=== PATIENT | female | born 1925 | race Caucasian/White ===

== ENCOUNTER 2016-08-23 18:59 | Inpatient (IN) | payer MEDICARE, OTHER ==
[~2016-08-23] VITALS: Ht 162.6 cm; Wt 62.7 kg
[~2016-08-23 18:59] MED LIST: ASPI81TA3 PO; COD1CAPS6 PO; CRES20T PO; LEVO25TA5 PO; LISI2.5T PO; MULT-1018 PO; PRE20 PO
[2016-08-23 19:09] VITALS: BP 121/60; PULSE 82; RESP 20; O2SAT 96
--- NOTE | 2016-08-23 19:22 | ED.REPORT ---
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 The patient was bit by her cat on Sunday (4 days ago). She was seen by her regular doctor on Sunday and was sent home on Augmentin 875 mg BID. Her symptoms have not improved and the redness has started to go up her arm. She denies fever, chills, diaphoresis, nausea or vomiting. Her last tetanus was in 2010. Nursing Notes Stated Complaint: CAT SCRATCH ON LEFT HAND AND ARM SENT FROM Chief Complaint: Extremity Trauma Nursing Notes Reviewed: Yes Allergies: Coded Allergies: niacin (Verified Allergy, Intermediate, tingle, 08/23/16) Scheduled Acetaminophen (Acetaminophen) 500 Mg Tablet 500 MG PO BID Albuterol Neb Soln (Albuterol Neb Soln) 2.5 Mg/3 Ml Vial.neb 2.5 MG INHALATION QAM Aspirin Chew (Aspirin Chew) 81 Mg Tab.chew 81 MG PO DAILY Garlic (Garlic) 200 Mg Tablet 400 MG PO QAM Levothyroxine (Levothyroxine) 25 Mcg Tablet Unknown Dose PO QAM Lisinopril (Lisinopril) 5 Mg Tablet 2.5 MG PO HS Multivitamin (Multi Vitamin Daily) 1 Each Tablet 1 EACH PO QAM Rosuvastatin Calcium (Rosuvastatin Calcium) 20 Mg Tablet 20 MG PO HS General Time Seen by MD: 19:22 Chief Complaint Hand Injury left Hx Obtained From: Patient Arrived By: Walk-in Onset Occurred: 4 days ago Symptom Duration: Since onset Caused by: Animal bite (cat scratch) Location: : Hand left Quality: Painful Severity: Current: Moderate Severity: Maximum: Moderate Recent Healthcare: No recent hospitalization, Recent doctor visit Similar Sx Previous: No Past Medical History Past Medical History Notes: Medications: Celebrex, Crestor, levothyroxine, vitamins, home O2 Past Medical History hypothyroid COPD-on chronic O2 History of possible remote C2 fracture Hyperlipidemia Osteoarthritis History of tubular adenomas on colonoscopy in 2009 Diverticulosis History of left bundle-branch block Past Surgical History T&A Partial thyroidectomy Bilateral tubal ligation Appendectomy Tonsillectomy Exploratory laparotomy a benign abdominal dinner incision Bilateral cataract surgeries Colonoscopy in 2004 and 2009 Family History Noncontributory Smoking History Former Smoker Social History Alcohol Use: 1-3 per week Other Social History: Good social support, Local resident Ambulatory Status Independent Review of Systems Constitutional: Denies: Chills, Fever Musculoskeletal: Reports: Extremity pain, Extremity swelling Skin: Reports Rash, Denies Diaphoresis Complete sys rev & neg: except as marked. GI: Denies: Nausea, Vomiting Physical Exam Initial Vital Signs Vital Signs (First) Date Time Temp Pulse Resp B/P Pulse Ox O2 Delivery O2 Flow Rate FiO2 08/23/16 19:09 36.9 82 20 121/60 96 Nasal Cannula 2 Initial VS: Reviewed Head / Eyes: Atraumatic, Normocephalic, PERRL ENT: Mucous membranes moist, Conjunctiva normal, No scleral icterus Neck: Supple, Non-tender, Full range of motion Respiratory: Breath sounds normal, Clear to auscultation, No respiratory distress Cardiovascular: Regular rate & rhythm, Heart sounds normal, Intact distal pulses Abdomen / GI: Soft, Non-tender, No guarding, No rebound, No distention Lymphatic: No lymphadenopathy Lower Extremities: Vascular intact, Neuro intact, No swelling, No tenderness Skin: Warm, Dry, No cyanosis Neurologic: Alert, Oriented, Nonfocal Psychiatric: Mood/affect normal, Behavior normal, Normal thought content General/Constitutional: Awake, Alert, Cooperative Wrist / Hand: Neurologic intact, Vascular intact LEFT HAND: She has dense erythema form the MCP joints up to the elbow, anteriorly and posteriorly. She has swelling with an area of about 2x2 cm at the dorsal wrist crease of fluctuance. Bedside US: At the level of the posterior wrist crease there is a few cc's of fluids around her extensor tendons. Interpretation & Diagnostics Lab Results Interpretation Result Diagram: 08/23/16199908/23/161999 Test 08/23/16 20:00 White Blood Count 9.6th/mm3 (3.8-10.1) Red Blood Count 3.97mil/mm3 (3.90-5.20) Hemoglobin 11.7g/dL (12.0-15.6) Hematocrit 36.6% (35.0-46.0) Mean Corpuscular Volume 92.2fL (81-100) Mean Corpuscular Hemoglobin 29.5pg (27.0-35.0) Mean Corpuscular Hemoglobin Concent 32.0% (32.0-37.0) Red Cell Distribution Width 13.3% (12.3-15.4) Platelet Count 294bil/L (150-400) Neutrophils (%) (Auto) 75.3% (40-74) Lymphocytes (%) (Auto) 10.4% (14-46) Monocytes (%) (Auto) 12.7% (4-12) Eosinophils (%) (Auto) 1.2% (0-5) Basophils (%) (Auto) 0.2% (0-3) Erythrocyte Sedimentation Rate 44mm/hr (0-40) Sodium Level 135mEq/L (134-144) Potassium Level 4.1mEq/L (3.5-5.2) Chloride Level 97mEq/L (97-108) Carbon Dioxide Level 27mmol/L (18-29) Blood Urea Nitrogen 12mg/dL (8-27) Creatinine 0.75mg/dL (0.57-1.00) Estimat Glomerular Filtration Rate 104mL/min (>59) Glucose Level 96mg/dL (60-99) Lactic Acid Level 1.0mmol/L (0.4-2.0) Calcium Level 9.6mg/dL (8.5-10.1) Total Bilirubin 0.6mg/dL (0.0-1.2) Aspartate Amino Transf (AST/SGOT) 24U/L (0-50) Alanine Aminotransferase (ALT/SGPT) 14U/L (0-32) Alkaline Phosphatase 69U/L (25-165) Total Protein 7.2g/dL (6.4-8.4) Albumin 4.0g/dL (3.4-5.0) Re-Eval/Medical Decision Med Decision/Clinical Course While the patient was in the emergency department I performed a bedside unofficial ultrasound and found a significant fluid collection at the dorsal wrist crease with 4 extensor tendons within the fluid sac. After had examined the patient he was concerned also that this might represent an abscess within the tendon sheath and he therefore recommended MRI scanning. Between 2100 and 2300 hrs. we attempted to obtain MR images of her hand but the patient ultimately was not able to cooperate sufficiently to allow these images to be obtained. I then again spoke with and he said that he would appreciate my attempts to do a blind I&D of the area. I then went to the floor at approximately 2315 and reevaluated the patient. I repeated an ultrasound and found that the fluid collection that had been prominent just a few hours previously had all but resolved. There was only a very scant amount of fluid visible around the tendons certainly less than one quarter of a centimeter. I did not therefore feel it appropriate for me to open up that tendon sheath at the bedside. The redness had dramatically improved as well. I think it is safe to withhold a procedure at this point until reevaluation by takes place in the morning. Source of Hx: Old records, Friend Re-Evaluation/Progress #1: Time of Eval: 19:33 Re-Evaluation/Progress Note: Discussed plan for admission. All questions were addressed. Re-Evaluation/Progress #2: Time of Eval: 19:42 Re-Evaluation/Progress Note: Dr. Vanegas is here examining the patient. Consultation #1: Referral / Consult Name: Shiva Vanegas MD Consulted With: Orthopedic Call Returned at: 19:38 Disk Grinder: Will see patient, Agrees with eval, Agrees with plan Note: He will come see the patient right now. After examining the patient he would like an MRI with contrast ordered. Consultation #2: Referral / Consult Name: Stefan Hernandez MD Consulted With: Hospitalist Requested Call at: 19:39 Call Returned at: 19:42 Disk Grinder: Will see patient, Agrees with eval, Agrees with plan, Accepts admit Counseled Regarding: Diagnosis, Lab results, Need for admission Discharge & Departure Impression: Primary Impression: Tenosynovitis of hand Additional Impressions: Cat bite of hand Encounter type: initial encounter Laterality: left Qualified Code: S61.452A - Open bite of left hand, initial encounter Failure of outpatient treatment Disposition: ADMITTED TO HOSPITAL Discharge Condition All VS Reviewed: Yes Condition: Stable Referrals: Nathen Harrison MD (PCP) [facility] (Family) Scribe Attestation Portions of this note were transcribed by Gabrielle Harper. I, Dr. Brown personally performed the history, physical exam and medical decision-making; I reviewed and confirmed the accuracy of the information in the transcribed note. Signed by: Agustín Jaramillo, 08/23/2016 at 2000. copies to: Nathen Harrison MD, Kirk H MD August 23, 2016 19:22 Leroy,Gabrielle Kraft August 23, 2016 19:31
[2016-08-23] MEDS ORDERED: Clindamycin Inj 900 MG in IV Premix 1 EACH IV ONE (19:40)
[2016-08-23] MEDS ORDERED: metroNIDAZOLE Inj 500 MG in IV Premix 1 EACH IV ONE (19:40)
[2016-08-23] MEDS ORDERED: Meropenem Inj 1,000 MG in 0.9% Sodium Chloride 100 ML IV ONE (19:40)
[2016-08-23] MEDS ORDERED: MULT-140 PO (19:47)
[2016-08-23] MEDS ORDERED: ACET-171 PO (19:47)
[2016-08-23] MEDS ORDERED: ALBU2.5V4 INHALATION (19:47)
[2016-08-23] MEDS ORDERED: GARL200T PO (19:47)
[2016-08-23] MEDS ORDERED: Alum-Mag Hydrox-Simeth 30 mL Suspension PO PRN (20:10)
[2016-08-23] MEDS ORDERED: Ondansetron 2 mg/mL 2 mL Inj IVPUSH PRN (20:10)
[2016-08-23] MEDS ORDERED: Polyethylene Glycol (PEG) 17 Gm Powder PO PRN (20:10)
[2016-08-23 20:14] LABS: BASOPHILS % (AUTO) 0.2 % (0-3); EOSINOPHILS % (AUTO) 1.2 % (0-5); MONOCYTES % (AUTO) 12.7 % (4-12); Mean Corpuscular Hemoglobin 29.5 pg (27.0-35.0); Mean Corpuscular Volume 92.2 fL (81-100); NEUTROPHILS % (AUTO) 75.3 % (40-74); Platelet Count 294 bil/L (150-400)
--- NOTE | 2016-08-23 20:17 | PCM.CONORT ---
Subjective Date of Surgery: August 23, 2016 Surgeon Admitting Provider:Stefan Hernandez MD Attending Provider:Stefan Hernandez MD Primary Care Physician:Nathen Rodriguez MD Other Provider: Reason for Consultation: left wrist pain, redness and swelling after cat bite Allergy Allergies: Coded Allergies: niacin (Verified Allergy, Intermediate, tingle, 08/23/16) Medications Acetaminophen (Acetaminophen) 500 Mg Tablet 500 MG PO HS (Reported) Albuterol Neb Soln (Albuterol Neb Soln) 2.5 Mg/3 Ml Vial.neb 2.5 MG INHALATION BID (Reported) Aspirin Chew (Aspirin Chew) 81 Mg Tab.chew 81 MG PO DAILY Prescribed by: NATEHN RODRIGUEZ MD Cod Liver Oil (Cod Liver Oil) 1 Each Capsule 1 EACH PO AM (Reported) Garlic (Garlic) 200 Mg Tablet 400 MG PO DAILY (Reported) Levothyroxine (Levothyroxine) 25 Mcg Tablet 25 MCG PO Every other day (Reported ) Take 25 mcg alternate with 12.5 mcg every other day. Lisinopril (Lisinopril) 2.5 Mg Tablet 2.5 MG PO DAILY Prescribed by: NATHEN RODRIGUEZ MD Multivitamin (Multi Vitamin Daily) 1 Each Tablet 1 EACH PO DAILY (Reported) Rosuvastatin Calcium (Crestor) 20 Mg Tablet 20 MG PO DAILY Prescribed by: NATHEN RODRIGUEZ MD Discontinued Medications Multivit with Calcium,Iron,Min (Therapeutic M) 1 Each Tablet 1 EACH PO DAILY ( Reported) Prednisone (PredniSONE) 20 Mg Tablet 20 MG PO DAILY Prescribed by: NATHEN RODRIGUEZ MD History History of ENT Problems?: Yes HEENT History: Positive for:: Cataracts (previous cataract surgery on both eyes) Denies:: Dysphagia Glaucoma Sinus Problem Denture Type: None Teeth Condition: Within Normal Limits Hx of Heart Problems?: No Cardiovascular History: Positive for:: Irregular Heartbeat (hx of left BBB) Denies:: Cardiac Surgery Chest Pain Congestive Heart Failure Edema Heart Murmur Hypertension Pacemaker Thrombophlebitis Other Cardiac History: HLD Hx of Respiratory Problem?: Yes Respiratory History: Positive for:: COPD (on chronic O2) Dyspnea Denies:: Asthma Chest Surgery Emphysema Hemoptysis Pneumonia Tuberculosis Hx Neurologic Problems?: Yes Neurological History: Positive for:: Dizziness Denies:: Alzheimer's Disease CVA Dementia Headaches Parkinson's Disease Seizures Hx of GI Problems?: Yes Hx of Problems?: No Genitourinary History: Denies:: HX of Hemodialysis Kidney Stones Urinary Tract Infection HX of Peritoneal Dialysis: No Female Hx: Denies:: Currently (s/p tubal ligation) Endometriosis Pelvic Inflammatory Problems with Breasts? Other Skin Pertinent History: current: left arm cat scratch-arm redness Hx Musculoskeletal Problems?: Yes Musculoskeletal History: Denies:: Back Injury Joint Replacement Musculoskeletal Trauma (hx of remote C2 fracture, "possible") Other History/Comment Cindy Guaman is an 89-year-old right hand dominant patient who presents to the ER and a consultation was requested for orthopedic evaluation of their left wrist/hand with ongoing symptoms. The patient states that their pain is achy in nature and mild/moderate in severity localized to the dorsal aspect of the hand and wrist without radiation. This has been progressing over the past few days after she was bit by her cat last Sunday. She went to her PCP on Sunday and was prescribed antibiotics which she has been taking. Moreover, the pain is exacerbated by activities, especially with extended use. Rest seems to improve the symptoms. Previous treatment has included antibiotics given from Sunday. There is no reports numbness, tingling, or weakness to the affected distal upper extremity. The patient denies any fever, chills, nausea, vomiting, chest pain, shortness of breath, or calf tenderness. Work/hobbies/sports include:she reports history of COPD and previous cigarette smoker. She reports swelling and redness that is spreading to her forearm. Hx of Psycho/Social Problems?: No Psycho Social History: Denies:: Anxiety Bipolar Disorder Hx Depression Suicide Attempt Hx Surgeries?: Yes (T&A, part.thyroidectomy, tubal lig, appy, tonsillectomy, cataracts) Hx Any Other Health Problems?: Yes Other History: Positive for:: Hospitalization Thyroid Disease (1988 Thyroid removed) Denies:: Cancer History Blood Transfusions: Positive for:: Accept Blood Products? Denies:: Blood Transfusions (unknown) Hx Diabetes: No Hx Alcohol Use: Yes (glass of wine monthly)Hx Substance Use: No Smoking Status: Former Smoker Have You Smoked inLast 12 mo: No (quit over a year ago) Objective Exam Vital Signs & I/O Vital Sign- Last 8 Hours Date Time Temp Pulse Resp B/P Pulse Ox O2 Delivery O2 Flow Rate FiO2 08/23/16 19:09 36.9 82 20 121/60 96 Nasal Cannula 2 Review of Systems: Constitutional: Negative, except as otherwise mentioned in the history above. Ophthalmologic: Negative, except as otherwise mentioned in the history above. Cardiovascular: Negative, except as otherwise mentioned in the history above. Respiratory: Negative, except as otherwise mentioned in the history above. Gastrointestinal: Negative, except as otherwise mentioned in the history above. Genitourinary: Negative, except as otherwise mentioned in the history above. Musculoskeletal: Negative, except as otherwise mentioned in the history above. Neurological: Negative, except as otherwise mentioned in the history above. Psychiatric: Negative, except as otherwise mentioned in the history above. Hematologic/Lymphatic: Negative, except as otherwise mentioned in the history above. Allergic/Immunologic: Negative, except as otherwise mentioned in the history above. H&P Surgical Exam Exam Musculoskeletal: CONST: WD,WN, NAD, A+OX3 OCULAR: EOMI, no conjunctivitis/icterus ENT: no deformities, scars or lesions CARDIAC: Pulse is regular. No cyanosis,clubbing,edema RESP: regular,unlabored MSK: normal light touch median, ulnar, radial, lateral antebrachial, axillary nerve distribution. Intact AIN, PIN, u, r, ax motor. C5-T1 intact, 2+ r/u pulse Left wrist/hand - scars, + redness up forearm dorsally, discoloration/warm temp , + swelling with 2cm diameter fluid pocket dorsum of wrist, - atrophy or asymmetry, - cascade sign, no global ligamentous laxity, TTP mild over wrist ROM left Ext-flex Resisted Strength/Pain 0-85 MCP 5/5 / - 0-110 PIP 5/5 / - 0-65 DIP 5/5 / - 60 -60 Wrist 5/5 /+ 50 deg of radioulnar arc mild painful arc, - crepitus Signs deferred H&P Preop Plan Impression left wrist abscess secondary to cat bite Problems: Risks & Benefits * We have reviewed the risks and benefits as well as the alternatives to surgery. All questions were answered to the patient's satisfaction and a counseling note to that effect. The patient has provided informed consent. * I have counseled the patient regarding the deleterious effects that smoking during the perioperative period can have upon wound healing, infection rates, and the overall rate of complications. Plan xray of wrist MRI with contrast to evaluate extent of infection recommend bedside I+D continue abx will continue to follow may need further I+D in OR if no improvement/worsening NPO after midnight consent obtained pain control continue medical management per primary please call with questions Shiva Vanegas MD August 23, 2016 20:17
[2016-08-23] MEDS ORDERED: LISI-571 PO (20:26)
[2016-08-23] MEDS ORDERED: ROSU20TA27 PO (20:27)
[2016-08-23] MEDS ORDERED: LEVO25TA5 PO (20:43)
--- NOTE | 2016-08-23 21:00 | NUR ---
Admit report received from Tawny ZUÑIGA RN arrived via [employer] via sheet d/t extreme RLE extremety from prev fall , admit dx tenosynovitis L hand text page for diet and pain med possible surgery chelsea per report
--- NOTE | 2016-08-23 21:30 | NUR ---
MRI Off floor to MRI of wrist transport via bed pre-mediated w/oxycodone prior
[2016-08-23 21:33] VITALS: BP 151/69; PULSE 85; RESP 18
[2016-08-23] MEDS ORDERED: Vancomycin Dose per Pharmacist XX SCH (21:40)
--- NOTE | 2016-08-23 21:49 | PCM.HPMED ---
Subjective Date of Service August 23, 2016 Primary Provider: Admitting Physician: Stefan Hernandez MD Primary Care Physician: Nathen Harrison MD Attending Physician: Stefan Hernandez MD Chief Complaint: Left hand cat bite History of Present Illness: Mrs. Cindy Stallings is a very pleasant 89-year-old lady here today with worsening pain and erythema of the left hand following a cat bite on Sunday. She visited her doctor on the following Sunday and was started on appropriate antibiotic therapy of Augmentin 875 mg twice a day. Since Sunday her pain, redness, swelling and decreased range of motion have worsened, even with the addition of antibiotics. The redness has extended from her hand to her elbow starting today noted by patient's roommate. Patient's pain is rated anywhere from 5 to a 10 out of 10 sharp and along the dorsal aspect of the radial carpal joint. There is a 3 x 3 fluctuant erythematous mass on the dorsal aspect of the radial carpal joint on the left hand. She denies syncope, dizziness, headache, chest pain, nausea, vomiting, diaphoresis, fever, chills, abdominal pain, dysuria, constipation. She reports chronic shortness of breath and new onset of normal color diarrhea today, which she states is very abnormal. She has a past medical history significant for COPD on home O2 of 2 L with a long history of tobacco use 75 years 1.5 packs per day but is currently a nonsmoker, left bundle branch block, hyperlipidemia, osteoarthritis. Medication list at this point is incomplete work on med reconciliation. In the emergency department on admission temperature of 36.9, pulse 82, respiratory rate 20, blood pressure 121/60, pulse ox 96 on 2 L nasal cannula. Laboratories unremarkable with normal white count hemoglobin 11.7, neuts 75.3, lymphs 10.4, monocytes 12.7, completely benign CMP, lactic acid of 1.0 In the emergency department patient received IV antibiotics including clindamycin, metronidazole, meropenem. Review of Systems: A comprehensive review of systems was conducted with the patient and found to be negative except as above in the History of Present Illness. Allergies Coded Allergies: niacin (Verified Allergy, Intermediate, tingle, 08/23/16) Home Medications Med list is incomplete as there is some disagreement at this time will continue to work on med reconciliation. PMH hypothyroid COPD-on chronic O2 History of possible remote C2 fracture Hyperlipidemia Osteoarthritis History of tubular adenomas on colonoscopy in 2010 Diverticulosis History of left bundle-branch block Surgical History T&A Partial thyroidectomy Bilateral tubal ligation Appendectomy Tonsillectomy Exploratory laparotomy a benign abdominal dinner incision Bilateral cataract surgeries Colonoscopy in 2004 and 2009 Family History Maternal GM diabetes Paternal GF Tuberculosis, alcoholism Social History Hx Alcohol Use: Yes (glass of wine per day) Hx Substance Use: No Hx Tobacco Use: No Smoking Status: Former Smoker (75 years of 1.5 ppd) Living Arrangement: Assisted Living ([facility]) Exam Vital Signs Vital Sign - Last Date Time Temp Pulse Resp B/P Pulse Ox O2 Delivery O2 Flow Rate FiO2 08/23/16 19:09 36.9 82 20 121/60 96 Nasal Cannula 2 Exam General: Pleasant elderly lady lying in bed in No acute distress, well-developed , well-nourished, appropriately interactive HEENT: Normocephalic, atraumatic. External ears without defect. Pupils equal, round, and reactive to light and accommodation. Anicteric sclerae, moist conjunctivae, and no lid lag. Oropharynx free of erythema and cobble stoning with moist mucosa. Neck: Supple with full range of motion. No jugular venous distension. No bruits. No lymphadenopathy or thyromegaly. Cardiovascular: Regular rate and rhythm with no murmurs, rubs, or gallops appreciated Pulmonary: Clear to auscultation bilaterally with no crackles, wheezes, or rhonchi. Normal respiratory effort with no use of accessory muscles. Abdomen: Bowel tones present. Soft, nontender, nondistended. No hepatosplenomegaly or masses appreciated. Extremities: No clubbing, cyanosis, edema, or lymphadenopathy appreciated. Skin: Normal temperature, turgor, and texture; no rash, ulcers, or subcutaneous nodules appreciated. Fluctuant,erythematous mass on the dorsal aspect of the left radial/carpal joint, roughly 3x3cm. Erythema extending from dorsal aspect of left hand to medial / posterior aspect of left elbow. Tender to palpation on dorsal aspect of left hand. Marked decrease ROM in flexion / extension. Four areas of apparent superficial scratch borrego on various areas surrounding the left erythematous mass present, without noticeable puncture wounds in or around the fluctuant mass on the dorsal aspect of the left radial carpal joint. Neurological: Cranial nerves grossly intact. Normal muscle strength, tone, and bulk. Reflexes, coordination, and sensory function within normal limits. Requires aid and walker due to right hip injury. Psychiatric: Normal mood and affect. Alert and oriented to person, place, and time. Lab and Diagnostics Result Diagram: 08/23/16199908/23/161999 Assessment & Plan Ms. Cindy Stallings is a very pleasant 89-year-old lady here today with worsening pain and erythema of the left hand following a cat bite on Sunday. She visited her doctor on the following Sunday and was started on appropriate antibiotic therapy of Augmentin 875 mg twice a day. Since Sunday her pain, redness, swelling and decreased range of motion have worsened, even with the addition of antibiotics. The redness has extended from her hand to her elbow starting today noted by patient's roommate. Patient's pain is rated anywhere from 5 to a 10 out of 10 sharp and along the dorsal aspect of the radial carpal joint. There is a 3 x 3 fluctuant erythematous mass on the dorsal aspect of the radial carpal joint on the left hand. She denies syncope, dizziness, headache, chest pain, nausea, vomiting, diaphoresis, fever, chills, abdominal pain, dysuria, constipation. She reports chronic shortness of breath and new onset of normal color diarrhea today, which she states is very abnormal. She has a past medical history significant for COPD on home O2 of 2 L with a long history of tobacco use 75 years 1.5 packs per day but is currently a nonsmoker, left bundle branch block, hyperlipidemia, osteoarthritis. Medication list at this point is incomplete work on med reconciliation. 1. Tenosynovitis of the left hand, present on admission. Active. - Second 2 traumatic Bite on 08/19/2016 - As an outpatient received 3 days of Augmentin 875 mg twice a day without improvement of symptoms. - In the emergency department patient received IV metronidazole, clindamycin, meropenem. - Cat bite increased risk for Pasteurella multocida- avoid Clinda cephalexin and dicloxacillin due to resistance. - White count 9.6, differential neutrophils 75.3, lymphs 10.4, Benzie 1.7, lactic acid 1.0. - Tetanus received in 2010. - Blood culture pending. - ESR pending. - Nasal MRSA swab ordered. - Orthopedic surgeon consulted, Dr. Vanegas has seen patient, recommendations greatly appreciated. - Plan was to I&D with culture in the emergency department after MRI. - Patient was not able to complete the MRI due to anxiety, wrist pain and right hip pain, even after several rounds of Ativan and Dilaudid. However, once patient made it to floor, her wrist erythema and fluctuant mass had greatly improved. Therefore an I&D was not preformed. - We will begin vancomycin MRSA coverage and broad-spectrum Zosyn. Will possibly require longer term outpatient antibiotics. If worsens may consider ID consult. - Nothing by mouth after midnight will be evaluated again tomorrow by orthopedic surgery. 2. COPD, present on admission. Stable. - Continue 2 L O2 by nasal cannula. - Patient states that she takes a daily nebulizer unknown at this point. 3. Hyperlipidemia, present admission. Stable. - Continue home medications. (Rosuvastatin) 4. Hypertension, present on admission. Stable. - Continue home medications.(Lisinopril 2.5) 5. History of partial thyroidectomy, - On the patient's Vanessa and med list she is prescribed Synthroid however patient says she does not need thyroid replacement therapy day team to reconcile this medication. 6. Acute diarrhea, present on admission. Active. - C. difficile stool toxin pending. 7. 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 Social: Patient's ambulatory status is questionable as of a mentioned a right hip injury 2 years ago with ineffective physical therapy and no relief of pain. She continues to have a functional disability where she requires aid and walker for ambulation. Subjectively she mentioned a current evaluation for possible hip surgery, unspecified and unconfirmed. Acetaminophen for mild pain when necessary. Bowel regimen Senna and MiraLAX scheduled and PRN. Zofran when necessary for nausea and vomiting. SubQ heparin held for now. SCDs in place. Disposition: Patient has been admitted for IV antibiotics, I&D and possible surgical intervention. Discharge is dependent upon infectious response to medical and surgical intervention. Will be discharged to [facility] when medically stable. Pain Evaluation: Adequate Pain Control Resuscitation Status: DNR/DNI:Do Not Resuscitate/Intubate Attending Statement The patient was seen and examined together with Dr. Das on 08/23 and I agree with the history, exam and plan as outlined in the note above. YANNICK DAS DO August 23, 2016 20:53 Stefan Hernandez MD August 23, 2016 21:56
[2016-08-23] MEDS ORDERED: HYDROmorphone 1 mg/mL Inj IVPUSH ONE (21:50)
[2016-08-23] MEDS ORDERED: Vancomycin Inj 1,250 MG in 0.9% Sodium Chloride 250 ML IV ONE (22:00)
[2016-08-23 22:09] LABS: APPEARANCE,URINE CLEAR (CLEAR,HAZY); COLOR,URINE YELLOW (YELLOW); OCCULT BLOOD,URINE SMALL (NEGATIVE); UROBILINOGEN,URINE NORMAL (NORMAL)
[2016-08-23] MEDS ORDERED: HYDROmorphone 0.5 mg/0.5 mL iSecure Syringe IVPUSH ONE (22:35)
--- NOTE | 2016-08-23 23:04 | PCM.CONPHA ---
Subjective Date of Service: August 23, 2016 Left hand cat bite Reason for Pharmacy Consult: Vancomycin Dosing Objective Vital Signs Date Time Temp Pulse Resp B/P Pulse Ox O2 Delivery O2 Flow Rate FiO2 08/23/16 21:33 37.4 85 18 151/69 Nasal Cannula 2.50 08/23/16 19:09 36.9 82 20 121/60 96 Nasal Cannula 2 Weight (Kilograms): 62.73 Height (Feet): 5 Height (Inches): 4 Test 08/23/16 20:00 08/23/16 21:44 White Blood Count 9.6th/mm3 (3.8-10.1) Red Blood Count 3.97mil/mm3 (3.90-5.20) Hemoglobin 11.7g/dL (12.0-15.6) Hematocrit 36.6% (35.0-46.0) Mean Corpuscular Volume 92.2fL (81-100) Mean Corpuscular Hemoglobin 29.5pg (27.0-35.0) Mean Corpuscular Hemoglobin Concent 32.0% (32.0-37.0) Red Cell Distribution Width 13.3% (12.3-15.4) Platelet Count 294bil/L (150-400) Neutrophils (%) (Auto) 75.3% (40-74) Lymphocytes (%) (Auto) 10.4% (14-46) Monocytes (%) (Auto) 12.7% (4-12) Eosinophils (%) (Auto) 1.2% (0-5) Basophils (%) (Auto) 0.2% (0-3) Erythrocyte Sedimentation Rate 44mm/hr (0-40) Sodium Level 135mEq/L (134-144) Potassium Level 4.1mEq/L (3.5-5.2) Chloride Level 97mEq/L (97-108) Carbon Dioxide Level 27mmol/L (18-29) Blood Urea Nitrogen 12mg/dL (8-27) Creatinine 0.75mg/dL (0.57-1.00) Estimat Glomerular Filtration Rate 104mL/min (>59) Glucose Level 96mg/dL (60-99) Lactic Acid Level 1.0mmol/L (0.4-2.0) Calcium Level 9.6mg/dL (8.5-10.1) Total Bilirubin 0.6mg/dL (0.0-1.2) Aspartate Amino Transf (AST/SGOT) 24U/L (0-50) Alanine Aminotransferase (ALT/SGPT) 14U/L (0-32) Alkaline Phosphatase 69U/L (25-165) Total Protein 7.2g/dL (6.4-8.4) Albumin 4.0g/dL (3.4-5.0) Urine Color Yellow (YELLOW) Urine Appearance Clear (CLEAR,HAZY) Urine pH 6.0 (5.0-8.0) Urine Specific [place] 1.007 (1.003-1.035) Urine Protein Negativemg/dL (NEG,TRACE) Urine Glucose (UA) Negativemg/dL (NEGATIVE) Urine Ketones Negativemg/dL (NEGATIVE) Urine Occult Blood Small (NEGATIVE) Urine Nitrite Negative (NEGATIVE) Urine Bilirubin Negative (NEGATIVE) Urine Urobilinogen Normalmg/dL (NORMAL) Urine Leukocyte Esterase Small (NEGATIVE) Urine RBC 0-2/hpf (0-2) Urine WBC 0-5/hpf (0-5) Urine Epithelial Cells Occasional/hpf (NONE-MOD) Urine Crystals None seen (NONE SEEN) Urine Bacteria None/hpf (NONE-FEW) Urine Hyaline Casts None/lpf (NONE) Urine Granular Casts None seen (NONE SEEN) Urine Waxy Casts None seen (NONE SEEN) Urine Red Blood Cell Casts None seen (NONE SEEN) Urine White Blood Cell Casts None seen (NONE SEEN) Urine Mucus None seen (None Seen) Urine Trichomonas None seen (NONE SEEN) Urine Yeast None (NONE SEEN) Urine Culture Reflexed Indicated Assessment/Plan Assessment/Plan VANCOMYCIN MANAGEMENT A\ 89yo F with Tenosynovitis of left hand 2nd to cat bite. Vancomycin goal trough of 10-15 Scr =0.75 GFR=44 WBC=9.6, afebrile Received Meropenem 1 gram x 1 in ER Current antibiotics Zosyn 3.375gram iv q8h dosed renally will adjust if necessary. Pending blood cultures P\ Will give loading dose of Vancomycin 1250mg IV x1 then 750mg IV q24h starting 08/24 with vancomycin trough before the 3rd dose. Erik Wright [facility] August 23, 2016 23:04
[2016-08-24] VITALS (9 sets, daily range): BP systolic 136–163; BP diastolic 52–72; PULSE 80–90; RESP 15–18; O2SAT 95–100
[2016-08-24] MEDS: Piperacillin-Tazo 3.375 Gm Inj 3.375 GM in Dextrose 5% Minibag Plus 50 ML IV SCH ×3 (02:25→13:00)
[2016-08-24 05:45] LABS: BASOPHILS % (AUTO) 0.2 % (0-3); EOSINOPHILS % (AUTO) 2.4 % (0-5); MONOCYTES % (AUTO) 12.3 % (4-12); Mean Corpuscular Hemoglobin 29.5 pg (27.0-35.0); Mean Corpuscular Volume 92.5 fL (81-100); NEUTROPHILS % (AUTO) 71.8 % (40-74); Platelet Count 293 bil/L (150-400)
[2016-08-24] MEDS ORDERED: Propofol 10,000 mCg/mL 20 mL Inj ONE (09:01)
[2016-08-24] MEDS ORDERED: Ondansetron 2 mg/mL 2 mL Inj ONE (09:01)
[2016-08-24] MEDS ORDERED: fentaNYL-PF 50 mCg/mL 2 mL Inj ONE (09:22)
--- NOTE | 2016-08-24 09:39 | NUR ---
NPO Keep her NPO per surgeon PA and states," Dr Vanegas will be in to see patient this afternoon for possible I&D. Daughter at bed side and aware.
--- NOTE | 2016-08-24 10:14 | PCM.PNMED ---
Subjective Date of Service August 24, 2016 Subjective pt stated that she felt much better less pain on Lt hand kept in NPO, plan for I&D per Ortho today Exam Vital Signs Vital Sign - Last Date Time Temp Pulse Resp B/P Pulse Ox O2 Delivery O2 Flow Rate FiO2 08/24/16 09:03 Supplement Oxygen 08/24/16 07:37 36.9 83 16 138/59 96 08/24/16 06:00 2.00 Intake and Output 08/23/16 08/23/16 08/24/16 Cumulative From/Thru 15:00 23:00 07:00 08/23/16 19:09 - 08/24/16 06:11 Intake Total 695 ml 695 ml Output Total 500 ml 500 ml Balance 195 ml 195 ml Intake Oral 240 ml 240 ml IV Total 455 ml 455 ml Output Urine Total 500 ml 500 ml Exam elederly, female, pleasant NAD, comfortably laying down on the bed no JVD, MMM, no LAD RRR, nl s1, s2 no mrg CTAB, no w,c S,ND,NT,normoactive BS+ warm, no edema, pulses 2/2 Lt hand: LROM of wrist joint due to pain, mildly edematous, mild erythema, warm up to forearm, no obvious ulcer on dorsum Lab and Diagnostics Result Diagram: 08/24/1651708/24/16517 Assessment & Plan Ms. Cindy Stallings is a very pleasant 89-year-old lady here today with worsening pain and erythema of the left hand following a cat bite on Sunday. She visited her doctor on the following Sunday and was started on appropriate antibiotic therapy of Augmentin 875 mg twice a day. Since Sunday her pain, redness, swelling and decreased range of motion have worsened, even with the addition of antibiotics. The redness has extended from her hand to her elbow starting today noted by patient's roommate. Patient's pain is rated anywhere from 5 to a 10 out of 10 sharp and along the dorsal aspect of the radial carpal joint. There is a 3 x 3 fluctuant erythematous mass on the dorsal aspect of the radial carpal joint on the left hand. She denies syncope, dizziness, headache, chest pain, nausea, vomiting, diaphoresis, fever, chills, abdominal pain, dysuria, constipation. She reports chronic shortness of breath and new onset of normal color diarrhea today, which she states is very abnormal. She has a past medical history significant for COPD on home O2 of 2 L with a long history of tobacco use 75 years 1.5 packs per day but is currently a nonsmoker, left bundle branch block, hyperlipidemia, osteoarthritis. Medication list at this point is incomplete work on med reconciliation. acute, active 1. Tenosynovitis of the left hand, present on admission. Active, Second 2 traumatic Bite on 08/19/2016, As an outpatient received 3 days of Augmentin 875 mg twice a day without improvement of symptoms. Tetanus received in 2010.no risks of Rabies. -clinically improving with current tx, -appreciate Orthopedic I&D today, culture - In the emergency department patient received IV metronidazole, clindamycin, meropenem, switched to vanc, zosyn. -awaits Blood culture. Nasal MRSA swab -appreciate ID input chronic, stable 2. COPD, present on admission. Stable. - Continue 2 L O2 by nasal cannula. - Patient states that she takes a daily nebulizer unknown at this point. 3. Hyperlipidemia, present admission. Stable. - Continue home medications. (Rosuvastatin) 4. Hypertension, present on admission. Stable. - Continue home medications.(Lisinopril 2.5) 5. History of partial thyroidectomy, - On the patient's Vanessa and med list she is prescribed Synthroid however patient says she does not need thyroid replacement therapy day team to reconcile this medication. 6. Acute diarrhea, present on admission. Active. - C. difficile stool toxin pending. 7. 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 Social: Patient's ambulatory status is questionable as of a mentioned a right hip injury 2 years ago with ineffective physical therapy and no relief of pain. She continues to have a functional disability where she requires aid and walker for ambulation. Subjectively she mentioned a current evaluation for possible hip surgery, unspecified and unconfirmed. Acetaminophen for mild pain when necessary. Bowel regimen Senna and MiraLAX scheduled and PRN. Zofran when necessary for nausea and vomiting. SubQ heparin held for now. SCDs in place. Disposition: within 1-2more days, home Resuscitation Status: DNR/DNI:Do Not Resuscitate/Intubate Time spent 35min Juan Antonio De La Garza MD August 24, 2016 09:28
--- NOTE | 2016-08-24 10:30 | PCM.PNORTH ---
Subjective Date of Service: August 24, 2016 Visit Information: Reason for Visit Tenosynovitis Left Hand Surgery/Surgery Date Post-Op Day # Date of Admission: August 23, 2016 at 20:04 Hospital Day # Subjective Patient is 1 day from admission for tenosinovitis of left hand. Patient's states that her hand feels 100% better than yesterday. Her pain is significantly reduced and she is not so worried about it anymore. She does state she does have tenderness on the backside of her hand when trying to bend her fingers or extend the wrist or when this is pushed on. She understands that she may need to have this drained still and would be willing to do so. Objective Exam Objective Patient is lying in bed and resting comfortably, not in acute distress. She appears to be alert and oriented 3. Left hand feels significantly warm compared to the right. She has a small area approximately 2 cm x 2 cm round along the dorsal aspect of the carpal region of the left wrist which does not fill firm, feels mostly like fluid but is tender to the touch. No purulence. No generalized reading of erythema though the left hand is slightly more erythematous than the left but no distinct cellulitic line. Range of motion of the left hand is restricted in flexion at the MCP joints to only 30, patient able to slightly extend and flex the wrist to proximally 20, limited due to pain but she states this is much better than yesterday. IV antibiotics have been running for approximately 3 hours now. Vital Signs and I/O Vital Sign - Last Date Time Temp Pulse Resp B/P Pulse Ox O2 Delivery O2 Flow Rate FiO2 08/24/16 09:03 Supplement Oxygen 08/24/16 07:37 36.9 83 16 138/59 96 08/24/16 06:00 2.00 Intake and Output 08/23/16 08/23/16 08/24/16 Cumulative From/Thru 15:00 23:00 07:00 08/23/16 19:09 - 08/24/16 06:11 Intake Total 695 ml 695 ml Output Total 500 ml 500 ml Balance 195 ml 195 ml Intake Oral 240 ml 240 ml IV Total 455 ml 455 ml Output Urine Total 500 ml 500 ml Lab & Micro Results Laboratory Tests Test 08/23/16 20:00 08/23/16 21:44 08/24/16 05:18 White Blood Count 9.6th/mm3 (3.8-10.1) 6.2th/mm3 (3.8-10.1) Red Blood Count 3.97mil/mm3 (3.90-5.20) 3.86mil/mm3 (3.90-5.20) Hemoglobin 11.7g/dL (12.0-15.6) 11.4g/dL (12.0-15.6) Hematocrit 36.6% (35.0-46.0) 35.7% (35.0-46.0) Mean Corpuscular Volume 92.2fL (81-100) 92.5fL (81-100) Mean Corpuscular Hemoglobin 29.5pg (27.0-35.0) 29.5pg (27.0-35.0) Mean Corpuscular Hemoglobin Concent 32.0% (32.0-37.0) 31.9% (32.0-37.0) Red Cell Distribution Width 13.3% (12.3-15.4) 13.2% (12.3-15.4) Platelet Count 294bil/L (150-400) 293bil/L (150-400) Neutrophils (%) (Auto) 75.3% (40-74) 71.8% (40-74) Lymphocytes (%) (Auto) 10.4% (14-46) 13.1% (14-46) Monocytes (%) (Auto) 12.7% (4-12) 12.3% (4-12) Eosinophils (%) (Auto) 1.2% (0-5) 2.4% (0-5) Basophils (%) (Auto) 0.2% (0-3) 0.2% (0-3) Erythrocyte Sedimentation Rate 44mm/hr (0-40) Sodium Level 135mEq/L (134-144) 141mEq/L (134-144) Potassium Level 4.1mEq/L (3.5-5.2) 4.4mEq/L (3.5-5.2) Chloride Level 97mEq/L (97-108) 103mEq/L (97-108) Carbon Dioxide Level 27mmol/L (18-29) 24mmol/L (18-29) Blood Urea Nitrogen 12mg/dL (8-27) 9mg/dL (8-27) Creatinine 0.75mg/dL (0.57-1.00) 0.67mg/dL (0.57-1.00) Estimat Glomerular Filtration Rate 104mL/min (>59) 119mL/min (>59) Glucose Level 96mg/dL (60-99) 97mg/dL (60-99) Lactic Acid Level 1.0mmol/L (0.4-2.0) Calcium Level 9.6mg/dL (8.5-10.1) 9.0mg/dL (8.5-10.1) Total Bilirubin 0.6mg/dL (0.0-1.2) 0.8mg/dL (0.0-1.2) Aspartate Amino Transf (AST/SGOT) 24U/L (0-50) 39U/L (0-50) Alanine Aminotransferase (ALT/SGPT) 14U/L (0-32) 19U/L (0-32) Alkaline Phosphatase 69U/L (25-165) 81U/L (25-165) Total Protein 7.2g/dL (6.4-8.4) 6.1g/dL (6.4-8.4) Albumin 4.0g/dL (3.4-5.0) 3.6g/dL (3.4-5.0) Urine Color Yellow (YELLOW) Urine Appearance Clear (CLEAR,HAZY) Urine pH 6.0 (5.0-8.0) Urine Specific [place] 1.007 (1.003-1.035) Urine Protein Negativemg/dL (NEG,TRACE) Urine Glucose (UA) Negativemg/dL (NEGATIVE) Urine Ketones Negativemg/dL (NEGATIVE) Urine Occult Blood Small (NEGATIVE) Urine Nitrite Negative (NEGATIVE) Urine Bilirubin Negative (NEGATIVE) Urine Urobilinogen Normalmg/dL (NORMAL) Urine Leukocyte Esterase Small (NEGATIVE) Urine RBC 0-2/hpf (0-2) Urine WBC 0-5/hpf (0-5) Urine Epithelial Cells Occasional/hpf (NONE-MOD) Urine Crystals None seen (NONE SEEN) Urine Bacteria None/hpf (NONE-FEW) Urine Hyaline Casts None/lpf (NONE) Urine Granular Casts None seen (NONE SEEN) Urine Waxy Casts None seen (NONE SEEN) Urine Red Blood Cell Casts None seen (NONE SEEN) Urine White Blood Cell Casts None seen (NONE SEEN) Urine Mucus None seen (None Seen) Urine Trichomonas None seen (NONE SEEN) Urine Yeast None (NONE SEEN) Urine Culture Reflexed Indicated Microbiology 08/23/16 Blood Culture, Received Pending 08/24/16 MRSA (PCR) - Final, Complete 08/23/16 Urine Culture - Preliminary, Resulted No growth to date Result Diagram: 08/24/1651708/24/16517 Assessment & Plan Impression Patient is day 1 from admission for left hand and wrist tenosinovitis. Still pending patient is improving and will need I&D, this is possible, antibiotics have been running for about 3 hours now. Problems: Plan Patient was on a diet which was general, reinforced and change the order to be nothing by mouth. Possibility that patient will require I&D today. Patient appears to be improving and we will be able to better determine this the longer she is on IV antibiotics. Patient will remain in the hospital until she is doing significantly better and the fluctuance and erythema are resolving. Current plan will be for Dr. Dr Shiva Vanegas to see her this afternoon for comparison from yesterday and decide if surgical intervention is warranted today versus bedside I&D versus continue to watch on antibiotics. Resuscitation Status: DNR/DNI:Do Not Resuscitate/Intubate Gilbert Hanson PA-C August 24, 2016 10:30
--- NOTE | 2016-08-24 10:55 | NUR ---
C-diff orders Patient used bed marquez and had urine out put 300cc. unable to collect Stool sample due to no BM yet. Will collect stool sample once patient has BM. Dr. Frederic conrad.
--- NOTE | 2016-08-24 11:34 | DRSVH ---
PROCEDURE: WRIST RIGHT WITHOUT CONTRAST ([id number]) INDICATIONS: TENOSYNOVITIS TECHNIQUE: Noncontrast coronal proton density fast spin echo and T2 fast spin echo with fat saturation; coronal 3-D gradient echo, axial T1 spin echo and T2 fast spin echo with fat saturation, sagittal T1 spin ech o through the wrist. COMPARISON: [facility], CR, FOREARM 2VW (RT), 04/08/2014, 19:47. FINDINGS: Image quality: Severely degraded by uncontrollable motion artifact. There is also reportedly difficul ty in patient positioning, and premature termination of the exam due to pain. Bones and cartilage: The carpal bones are normally aligned. No bone marrow contusions or fractures. There is severe first CMC and triscaphe joint degeneration, with prominent spurring and full-thickn ess articular cartilage loss. There is also subchondral cystic change. Carpal ligaments: The scapholunate and lunotriquetral ligaments are not well-seen, obscured by motio n artifact. In the absence of intra-articular contrast, the extrinsic carpal ligaments are not well identified. Triangular fibrocartilage complex: The triangular fibrocartilage appears grossly intact although sev erely limited study sensitivity due to uncontrollable motion artifact. The adjacent meniscal homolog appears normal in the absence of intra-articular contrast. The extensor carpi ulnaris tendon is nor mal in location and morphology. Tendons and soft tissues: The carpal tunnel structures are not well visualized do to motion artifact , however there is T2 hyperintensity surrounding the flexor tendons at the level of the distal radial margin, image 12 series 5 There is fluid surrounding the extensor carpi radialis longus and brevis tendons as well as the exten sor digitorum and extensor indices tendon slips. No soft tissue ganglion cysts. IMPRESSION: Severely motion degraded examination as detailed above, however within those constraints, there is fluid surrounding the extensor carpi radialis longus and brevis tendons as well as the exte nsor indicis and extensor digitorum tendon slips, in keeping with tenosynovitis. Additional T2 hyperintensity/edema involving the flexor tendons at the level of the distal radial mar gin raising possibility of carpal tunnel syndrome. Please correlate clinically. Severe right wrist osteoarthritis. Dictated by: Chip Cullen M.D. on 08/24/2016 at 11:22 Approved by: Chip Cullen M.D. on 08/24/2016 at 11:32
--- NOTE | 2016-08-24 12:47 | NUR ---
Low grade Temp Temp 99.1. Notified Dr. De La Garza. PRN Tylenol given for pain right hip 09/16 and low grade temp.
--- NOTE | 2016-08-24 14:12 | NUR ---
Last BM yesterday per patient report. No BM so far. Addendum: 08/24/16 at 1413 by DYLAN CRUZ RN Amended: Links added.
--- NOTE | 2016-08-24 14:12 | NUR ---
NPO Addendum: 08/24/16 at 1413 by DYLAN CRUZ RN Amended: Links added.
[2016-08-24] MEDS: Ampicillin-Sulbactam Inj 3,000 MG in 0.9% Sodium Chloride 100 ML IV SCH ×3 (16:10→22:49)
--- NOTE | 2016-08-24 16:17 | PCM.HPANE ---
Patient Data Surgeon Admitting Provider:Stefan Hernandez MD Attending Provider:Stefan Hernandez MD Primary Care Physician:Nathen Harrison MD Other Provider: Reason for Visit Tenosynovitis Left Hand Ht/WT & BMI Height (Feet): 5 Height (Inches): 4 Weight (Kilograms): 62.73 Body Mass Index Allergies Coded Allergies: niacin (Verified Allergy, Intermediate, tingle, 08/23/16) Past Anesthesia History Anesthesia History: Denies:: Anesthesia Reactions Diabetes History Hx Diabetes?: No MRSA MRSA: No Medications Active Scripts Aspirin Chew 81 Mg Tab.chew81 Mg PO DAILY #1 BOTTLE Ref 0 Prov:Nathen Harrison MD 08/11/14 Reported Medications Levothyroxine 25 Mcg TabletUnknown Dose PO QAM Ref 0 08/23/16 Rosuvastatin Calcium 20 Mg Epnmee76 Mg PO HS 08/23/16 Lisinopril 5 Mg Tablet2.5 Mg PO HS #30 TABLET Ref 0 08/23/16 Garlic 200 Mg [id number] Mg PO QAM 08/23/16 Albuterol Neb Soln 2.5 Mg/3 Ml Vial.neb2.5 Mg INHALATION QAM Ref 0 08/23/16 Acetaminophen 500 Mg [id number] Mg PO BID 08/23/16 Multivitamin (Multi Vitamin Daily)1 Each Tablet1 Each PO QAM 08/09/14 Discontinued Reported Medications Multivit with Calcium,Iron,Min (Therapeutic M)1 Each Tablet1 Each PO DAILY 08/23/16 Levothyroxine 25 Mcg Ghughd91 Mcg PO Every other day Take 25 mcg alternate with 12.5 mcg every other day. 08/09/14 Cod Liver Oil 1 Each Capsule1 Each PO AM 08/09/14 Discontinued Scripts Lisinopril 2.5 Mg Tablet2.5 Mg PO DAILY #30 TABLET Ref 11 Prov:Nathen Harrison MD 08/11/14 Prednisone (PredniSONE)20 Mg Dzwmai34 Mg PO DAILY 3 Days Ref 0 Prov:Nathen Harrison MD 08/11/14 Rosuvastatin Calcium (Crestor)20 Mg Ikbyfw99 Mg PO DAILY 30 Days Ref 0 Prov:Nathen Harrison MD 04/08/14 History History of ENT Problems?: Yes HEENT History: Positive for:: Cataracts (previous cataract surgery on both eyes) Denies:: Dysphagia Glaucoma Sinus Problem Denture Type: Full- Upper Full- Lower Teeth Condition: Within Normal Limits Hx of Heart Problems?: No Cardiovascular History: Positive for:: Irregular Heartbeat (hx of left BBB) Denies:: Cardiac Surgery Chest Pain Congestive Heart Failure Edema Heart Murmur Hypertension Pacemaker Thrombophlebitis Other Cardiac History: HLD Hx of Respiratory Problem?: Yes Respiratory History: Positive for:: COPD (on chronic O2) Dyspnea Denies:: Asthma Chest Surgery Emphysema Hemoptysis Pneumonia Tuberculosis Hx Neurologic Problems?: Yes Neurological History: Positive for:: Dizziness Denies:: Alzheimer's Disease CVA Dementia Headaches Parkinson's Disease Seizures Hx of GI Problems?: Yes Hx of Problems?: No Genitourinary History: Denies:: HX of Hemodialysis Kidney Stones Urinary Tract Infection HX of Peritoneal Dialysis: No Female Hx: Denies:: Currently (s/p tubal ligation) Endometriosis Pelvic Inflammatory Problems with Breasts? Other Skin Pertinent History: current: left arm cat scratch-arm redness Hx Musculoskeletal Problems?: Yes Musculoskeletal History: Denies:: Back Injury Joint Replacement Musculoskeletal Trauma (hx of remote C2 fracture, "possible") Hx of Psycho/Social Problems?: No Psycho Social History: Denies:: Anxiety Bipolar Disorder Hx Depression Suicide Attempt Hx Surgeries?: Yes (T&A, part.thyroidectomy, tubal lig, appy, tonsillectomy, cataracts) Hx Any Other Health Problems?: Yes Other History: Positive for:: Hospitalization Thyroid Disease (1988 Thyroid removed) Denies:: Cancer History Blood Transfusions: Positive for:: Accept Blood Products? Denies:: Blood Transfusions (unknown) Hx Diabetes: No Hx Alcohol Use: Yes (glass of wine per day)Hx Substance Use: No Smoking Status: Former Smoker (75 years of 1.5 ppd) Have You Smoked inLast 12 mo: No (quit over a year ago) Stop/Bang Treated for Sleep Apnea?: No Do You Have a CPAP Machine?: No S-Snoring: Do You Snore Loudly: No T-Tired: feel tired, fatigued: Yes O-Obsered: Observed not breath: No P-Blood Pressure: treated: Yes B- Body Mass Index > 35 kg/m2: No A- Age over 50: Yes N- Neck Large Circumference: No G- Gender Male: No JUSTIN Total Score: 2 JUSTIN Risk Assessment: Low Risk, <3 Yes Risk Assessment Category Category 1A: Patient has history of documented sleep apnea, and HAS NOT received any narcotic, sedative or anesthesia administration during this stay. Category 1B: Patient has history of documented sleep apnea, and HAS received any narcotic , sedative or anesthesia administration during this stay Category 2: Patient has SUSPECTED Obstructive Sleep Apnea, and HAS received any narcotic , sedative or anesthesia administration during this stay. Category 3: Patient has SUSPECTED Obstructive Sleep Apnea and HAS NOT received narcotic, sedative or anesthesia administration during this stay. Category 4: Outpatient in Procedural Areas with known sleep apnea or who screen positive for High Risk via the STOP/BANG questionnaire. Exam Exam Vital Signs Vital Signs Date Time Temp Pulse Resp B/P Pulse Ox O2 Delivery O2 Flow Rate FiO2 08/24/16 15:10 Supplement Oxygen 08/24/16 12:35 37.3 80 15 149/70 97 Nasal Cannula 2.00 08/24/16 09:03 Supplement Oxygen General Appearance: Alert, Oriented X3, Cooperative, No Acute Distress HEENT/AIRWAY: MP 2, Neck Movement, Mouth Opening Lungs: Clear to Auscultation, Normal Air Movement Heart: Exam Unremarkable, Regular Rate/Rhythm, No Murmurs/Rubs/Gallops Meds/Labs/Diagnostics Admission Meds Current Medications Meropenem 1000 mg/ Sodium Chloride 100 ml @ 200 mls/hr ONCE ONCE IV Last administered on 08/23/16 20:46; Start 08/23/16 at 19:40; Stop 08/24/16 at 16:10 ; Status DC Piperacillin Sod/ Tazobactam Sod/ Dextrose/Water (Zosyn 3.375 Gm Inj/D5W Minibag Plus) 50 ml @ 12.5 mls/hr Q8H IV Last administered on 08/24/16 13:00 ; Start 08/23/16 at 22:00; Stop 08/24/16 at 16:10; Status DC Lorazepam (Ativan Inj) 1 mg ONCE ONCE IVPUSH Last administered on 08/23/16 22 :46; Start 08/23/16 at 21:50; Stop 08/23/16 at 21:51; Status DC Hydromorphone HCl 1 mg 1 mg ONCE ONCE IVPUSH Last administered on 08/23/16 22 :47; Start 08/23/16 at 21:50; Stop 08/23/16 at 21:51; Status DC Vancomycin HCl/ Sodium Chloride (Vancocin Inj/ Normal Saline) 250 ml @ 166.667 mls/hr ONCE ONCE IV Last administered on 08/24/16 00:24; Start 08/23/16 at 22 :00; Stop 08/24/16 at 16:10; Status DC Hydromorphone HCl (Dilaudid Inj) 0.5 mg ONCE ONCE IVPUSH Last administered on 08/23/16 22:45; Start 08/23/16 at 22:35; Stop 08/23/16 at 22:36; Status DC Lorazepam (Ativan Inj) 0.5 mg ONCE ONCE IVPUSH Last administered on 08/23/16 22:45; Start 08/23/16 at 22:35; Stop 08/23/16 at 22:36; Status DC Labs Test 08/23/16 20:00 08/23/16 21:44 08/24/16 05:18 Erythrocyte Sedimentation Rate 44mm/hr (0-40) Lactic Acid Level 1.0mmol/L (0.4-2.0) Urine Color Yellow (YELLOW) Urine Appearance Clear (CLEAR,HAZY) Urine pH 6.0 (5.0-8.0) Urine Specific [place] 1.007 (1.003-1.035) Urine Protein Negativemg/dL (NEG,TRACE) Urine Glucose (UA) Negativemg/dL (NEGATIVE) Urine Ketones Negativemg/dL (NEGATIVE) Urine Occult Blood Small (NEGATIVE) Urine Nitrite Negative (NEGATIVE) Urine Bilirubin Negative (NEGATIVE) Urine Urobilinogen Normalmg/dL (NORMAL) Urine Leukocyte Esterase Small (NEGATIVE) Urine RBC 0-2/hpf (0-2) Urine WBC 0-5/hpf (0-5) Urine Epithelial Cells Occasional/hpf (NONE-MOD) Urine Crystals None seen (NONE SEEN) Urine Bacteria None/hpf (NONE-FEW) Urine Hyaline Casts None/lpf (NONE) Urine Granular Casts None seen (NONE SEEN) Urine Waxy Casts None seen (NONE SEEN) Urine Red Blood Cell Casts None seen (NONE SEEN) Urine White Blood Cell Casts None seen (NONE SEEN) Urine Mucus None seen (None Seen) Urine Trichomonas None seen (NONE SEEN) Urine Yeast None (NONE SEEN) Urine Culture Reflexed Indicated White Blood Count 6.2th/mm3 (3.8-10.1) Red Blood Count 3.86mil/mm3 (3.90-5.20) Hemoglobin 11.4g/dL (12.0-15.6) Hematocrit 35.7% (35.0-46.0) Mean Corpuscular Volume 92.5fL (81-100) Mean Corpuscular Hemoglobin 29.5pg (27.0-35.0) Mean Corpuscular Hemoglobin Concent 31.9% (32.0-37.0) Red Cell Distribution Width 13.2% (12.3-15.4) Platelet Count 293bil/L (150-400) Neutrophils (%) (Auto) 71.8% (40-74) Lymphocytes (%) (Auto) 13.1% (14-46) Monocytes (%) (Auto) 12.3% (4-12) Eosinophils (%) (Auto) 2.4% (0-5) Basophils (%) (Auto) 0.2% (0-3) Sodium Level 141mEq/L (134-144) Potassium Level 4.4mEq/L (3.5-5.2) Chloride Level 103mEq/L (97-108) Carbon Dioxide Level 24mmol/L (18-29) Blood Urea Nitrogen 9mg/dL (8-27) Creatinine 0.67mg/dL (0.57-1.00) Estimat Glomerular Filtration Rate 119mL/min (>59) Glucose Level 97mg/dL (60-99) Calcium Level 9.0mg/dL (8.5-10.1) Total Bilirubin 0.8mg/dL (0.0-1.2) Aspartate Amino Transf (AST/SGOT) 39U/L (0-50) Alanine Aminotransferase (ALT/SGPT) 19U/L (0-32) Alkaline Phosphatase 81U/L (25-165) Total Protein 6.1g/dL (6.4-8.4) Albumin 3.6g/dL (3.4-5.0) Plan Impression Patient chart reviewed, patient interviewed and anesthestic plan with risks, benefits, and alternatives discussed, and informed consent obtained. NPO per Anesth. Guidelines: Yes ASA Physical Status: ASA3 Severe Disease Anesthetic Plan: GA Bene/Risks/Altern/Consents: Yes HP Complete Prior to Induction: Yes Jose Muro MD August 24, 2016 16:17
--- NOTE | 2016-08-24 16:31 | NUR ---
Surgical procedure Right arm IV infiltration. patient denies pain, slight swelling noted. ICe applied. paged Dr. De La Garza. Called IV therapy and new peripheral IV to right upper arm. new orders of IV ABO Ampicillin per Dr. Tejada. Notified OR and ABO will be started in the OR. family/friend went with patient to OR with OR nurse.
[2016-08-24] MEDS ORDERED: diphenhydrAMINE 25 mg Capsule PO PRN (17:20)
[2016-08-24] MEDS ORDERED: Lactated Ringer's 1,000 ML IV ONE (17:21)
[2016-08-24] MEDS ORDERED: Lidocaine 1%-Epi 1:100,000 20 mL Inj INJ ONE (17:49)
[2016-08-24] MEDS ORDERED: Lactated Ringer's 1,000 ML IV SCH (17:56)
[2016-08-24] MEDS ORDERED: Lactated Ringer's 500 ML IV PRN (17:56)
[2016-08-24] MEDS ORDERED: MetoCLOpramide 5 mg/mL 2 mL Inj IVPUSH PRN (18:00)
[2016-08-24] MEDS ORDERED: Ondansetron 2 mg/mL 2 mL Inj IVPUSH PRN (18:00)
[2016-08-24] MEDS ORDERED: fentaNYL-PF 50 mCg/mL 2 mL Inj IVPUSH PRN (18:00)
[2016-08-24] MEDS ORDERED: Atropine 0.4 mg/mL Inj IVPUSH PRN (18:00)
[2016-08-24] MEDS ORDERED: EPHEDrine Sulfate 50 mg/mL Inj IVPUSH PRN (18:00)
[2016-08-24] MEDS ORDERED: Labetalol 5 mg/mL 4 mL Inj IV PRN (18:00)
[2016-08-24] MEDS ORDERED: Dexamethasone 4 mg/mL Inj IVPUSH PRN (18:00)
[2016-08-24] MEDS ORDERED: HYDROmorphone 1 mg/mL Inj IVPUSH PRN (18:00)
[2016-08-24] MEDS ORDERED: Phenylephrine 10,000 mCg/mL Inj IVPUSH PRN (18:00)
--- NOTE | 2016-08-24 18:18 | PCM.ANEP1 ---
Post Anesthesia PACU Phase 1 Assessment Vital Signs Vital Signs Date Time Temp Pulse Resp B/P Pulse Ox O2 Delivery O2 Flow Rate FiO2 08/24/16 18:10 36.8 88 16 145/63 100 Simple Mask 8 08/24/16 15:10 Supplement Oxygen 08/24/16 12:35 37.3 80 15 149/70 97 Nasal Cannula 2.00 Anesthetic Administered: GA Level of Alertness: Awake, talking GRANDA's with Equal Strength: Yes Pain: No Pain Scale Score: 0 Nausea or Vomiting: No CV Function and Hydration: Yes Airway Device: Oralpharangeal Airway Oxygen Delivery: Simple Mask Lungs: Clear to Auscultation, Normal Air Movement Dermatome Level: Full Sensation PACU Phase 2 Assessment Complications: No Follow up Care: N/A Patient Instructions Provided: Yes Jose Muro MD August 24, 2016 18:18
--- NOTE | 2016-08-24 18:23 | NUR ---
I&D OR Report received from OR nurse. stable VS and oxygen. Splint on to left hand. Neuros WNL. one dose of Amphicillin was given in the oR. awaiting patient back from OR.
--- NOTE | 2016-08-24 19:28 | NUR ---
Back from OR increased pain 8/10 to left hand. PRN oxy given as ordered. Report given to on coming nurse.
[2016-08-24] MEDS ORDERED: Albuterol 2.5 mg/3 mL Inhalation Solution NEB PRN (21:20)
--- NOTE | 2016-08-24 21:30 | NUR ---
Neb tx Patient daughter stated patient gets nebulizer at nights obtained order to continue ,RT came administered
[2016-08-24] MEDS ORDERED: Vancomycin Inj 750 MG in 0.9% Sodium Chloride 250 ML IV SCH (23:30)
[2016-08-25] VITALS (7 sets, daily range): BP systolic 115–160; BP diastolic 56–69; PULSE 62–87; RESP 15–18; O2SAT 93–97
[2016-08-25] MEDS: Sodium Chloride LOK Flush 10 mL Syringe IV SCH ×3 (00:30→16:13)
[2016-08-25] MEDS: Ampicillin-Sulbactam Inj 3,000 MG in 0.9% Sodium Chloride 100 ML IV SCH ×3 (04:08→13:56)
[2016-08-25] MEDS ORDERED: HYDROmorphone 1 mg/mL Inj IVPUSH ONE (06:35)
[2016-08-25 06:55] LABS: BASOPHILS % (AUTO) 0.4 % (0-3); EOSINOPHILS % (AUTO) 1.4 % (0-5); Mean Corpuscular Hemoglobin 29.9 pg (27.0-35.0); Mean Corpuscular Volume 92.7 fL (81-100); NEUTROPHILS % (AUTO) 79.2 % (40-74); Platelet Count 308 bil/L (150-400)
[2016-08-25 07:10] LABS: Phosphorus 3.8 mg/dL (2.5-4.9)
--- NOTE | 2016-08-25 07:48 | PCM.PNMED ---
Subjective Date of Service August 25, 2016 Subjective pain 8/10 overnight - mildly improv with pain meds. denies n/t s/p I&D with surgery yesterday. denies f/c/cp/sob Exam Vital Signs Vital Sign - Last Date Time Temp Pulse Resp B/P Pulse Ox O2 Delivery O2 Flow Rate FiO2 08/25/16 07:37 85 16 94 Nasal Cannula 2.00 08/25/16 06:20 36.8 115/56 Intake and Output 08/24/16 08/24/16 08/25/16 Cumulative From/Thru 15:00 23:00 07:00 08/23/16 19:09 - 08/25/16 06:21 Intake Total 1039 ml 335 ml 2069 ml Output Total 400 ml 900 ml Balance 1039 ml -65 ml 1169 ml Intake Oral 120 ml 360 ml IV Total 1039 ml 215 ml 1709 ml Output Urine Total 400 ml 900 ml Exam elderly, female, pleasant NAD, comfortably laying down on the bed no JVD, MMM, no LAD RRR, nl s1, s2 no mrg CTAB, no w,c S,ND,NT,normoactive BS+ warm, no edema, pulses 2/2 Lt hand: LROM of wrist joint due to pain, splint/bandage, c/d/i IVs and Medications Medications Reviewed: Medications were reviewed in detail Lab and Diagnostics Result Diagram: 08/25/16 0600 08/25/16 0600 Assessment & Plan Ms. Cindy Stallings is a very pleasant 89-year-old lady here today with worsening pain and erythema of the left hand following a cat bite on Sunday. She visited her doctor on the following Sunday and was started on appropriate antibiotic therapy of Augmentin 875 mg twice a day. Since Sunday her pain, redness, swelling and decreased range of motion have worsened, even with the addition of antibiotics. The redness has extended from her hand to her elbow starting today noted by patient's roommate. Patient's pain is rated anywhere from 5 to a 10 out of 10 sharp and along the dorsal aspect of the radial carpal joint. There is a 3 x 3 fluctuant erythematous mass on the dorsal aspect of the radial carpal joint on the left hand. She denies syncope, dizziness, headache, chest pain, nausea, vomiting, diaphoresis, fever, chills, abdominal pain, dysuria, constipation. She reports chronic shortness of breath and new onset of normal color diarrhea today, which she states is very abnormal. She has a past medical history significant for COPD on home O2 of 2 L with a long history of tobacco use 75 years 1.5 packs per day but is currently a nonsmoker, left bundle branch block, hyperlipidemia, osteoarthritis. Medication list at this point is incomplete work on med reconciliation. acute, active 1. Tenosynovitis of the left hand, present on admission. Active, Second 2 traumatic Bite on 08/19/2016, As an outpatient received 3 days of Augmentin 875 mg twice a day without improvement of symptoms. Tetanus received in 2010.no risks of Rabies. -clinically improving with current tx, -appreciate Orthopedic I&D 08/24, culture - In the emergency department patient received IV metronidazole, clindamycin, meropenem, switched to vanc, zosyn. -awaits Blood culture. Nasal MRSA swab -appreciate ID input - on unasyn now chronic, stable 2. COPD, present on admission. Stable. - Continue 2 L O2 by nasal cannula. - Patient states that she takes a daily nebulizer unknown at this point. 3. Hyperlipidemia, present admission. Stable. - Continue home medications. (Rosuvastatin) 4. Hypertension, present on admission. Stable. - Continue home medications.(Lisinopril 2.5) 5. History of partial thyroidectomy, - On the patient's Vanessa and med list she is prescribed Synthroid however patient says she does not need thyroid replacement therapy day team to reconcile this medication. 6. Acute diarrhea, present on admission. Active. - C. difficile stool toxin pending. 7. 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 Social: Patient's ambulatory status is questionable as of a mentioned a right hip injury 2 years ago with ineffective physical therapy and no relief of pain. She continues to have a functional disability where she requires aid and walker for ambulation. Subjectively she mentioned a current evaluation for possible hip surgery, unspecified and unconfirmed. Acetaminophen for mild pain when necessary. Bowel regimen Senna and MiraLAX scheduled and PRN. Zofran when necessary for nausea and vomiting. SubQ heparin cont SCDs in place. Disposition: within 1-2more days, home Pain Evaluation: Adequate Pain Control GI Prophylaxis: Not indicated VTE Prophylaxis: Sub-Q Heparin (Unfractionated) Resuscitation Status: DNR/DNI:Do Not Resuscitate/Intubate Time spent 35 minutes spent with eval and Ahsan Huddleston DO August 25, 2016 07:48
--- NOTE | 2016-08-25 08:03 | CONS ---
[address] [address] CONSULTATION REPORT PATIENT: SANDER CASH : 1925 MR#: [id number] ADMIT: 08/23/2016 JOB ID: [id number] DATE OF SERVICE: 08/24/[address] De La Garza for this timely consult. REASON FOR CONSULTATION: Right dorsal hand infection secondary to cat bite. HISTORY OF PRESENT ILLNESS: The patient is a delightful, 89-year-old woman, who was in her usual state of very good health until August 19, when her cat of 15 years bit her on the left dorsal hand. She was started on Augmentin a couple of days later but, unfortunately, has had a progressive redness, erythema and pain over the dorsal left hand despite the oral Augmentin. It was noted that the pain and redness was radiating from the dorsal hand all the way up towards the elbow which was extraordinary for this patient at this time. She was referred to this facility for evaluation where she was found to have an erythematous mass on the dorsal aspect of her hand just distal to the wrist. At that time, she was evaluated and admitted here on August 23, yesterday, this had been going on for about four days and had not been stemmed by two days of appropriate Augmentin. Despite these worrisome symptoms, the patient stated she had no real constitutional symptoms and she denied fevers, chills, night sweats, headache, sore throat or undue respiratory difficulty. She notes that since she has been admitted here yesterday and started on IV antibiotics, she has done way better and she now feels her left hand is steadily improving. The patient also notes that she had some diarrhea yesterday on the , the day of admission, and this led to the ordering of a stool for C. diff, but she has not had a bowel movement since then, and has no abdominal cramps or diarrhea today. PAST MEDICAL HISTORY: 1. 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 2. Hypothyroidism. 3. Hyperlipidemia. 4. History of left bundle branch block. 5. Severe arthritis, left hip, which leaves her walking only with a walker. SOCIAL HISTORY: The patient enjoys a glass of wine or so per day. She said she smoked for 73 years, having recently quit, and smoke quite heavily, which has led to her COPD. She lives in a [facility] facility she loves, and says she has a wonderful life for an old lady. FAMILY HISTORY: Positive for tuberculosis with the grandfather. Also some history of diabetes, though she does have it. REVIEW OF SYSTEMS: The patient denies any ongoing headache. No change in her hearing or vision. No sore throat or trouble swallowing. No swollen lymph nodes. No significant cough, though she always has a bit of a dry cough related to her COPD. She also notes she sometimes has some exertional shortness of breath but this is not different or worse than baseline. No chest pain. No nausea, vomiting, diarrhea, or dysuria. She has chronic left hip pain which is quite severe and she is thinking about having her left hip replaced, she tells me. She has the severe pain in her left hand described above after the cat bit her. Lower extremities, really no complaints except for the hip. Remainder of the review of systems negative. PHYSICAL EXAMINATION: Reveals an afebrile woman. Temperature 37.3, pulse 80, respiratory rate 15, blood pressure 149/70. She is saturating 97% on 2 L. She is awake, alert, extremely perky, lucid and energetic. Examination of the head unremarkable. The eyes without any scleral icterus or conjunctivitis. The nose is normal. Oral cavity without thrush, pharyngitis, or hairy leukoplakia. Neck is quite supple for her age of 89. No cervical adenopathy. Lungs with fair air flow. No crackles bilaterally. Cardiac tones regular rate and rhythm without appreciable murmur. Abdomen soft and nontender without organomegaly. No suprapubic fullness. She does not have a Napier catheter. Lower extremities are warm and well perfused with reasonably good peripheral pulses. No evidence for synovitis, cellulitis or edema. The left hand on the other hand is moderately tender across its dorsal aspect, especially towards the wrist. I did not perceive an abscess and the patient is able to move her fingers, though she has some pain. She also has reasonable motion of the wrist itself and she says this is all much, much better than it was yesterday. Neurologically, the patient is intact. LABORATORIES: Include a white count 6200 with basically normal diff today. Sed rate 44, which is basically normal for her age. Creatinine 0.67. LFTs completely normal. Urinalysis negative. Micro studies include a MRSA screen of the nares which was negative, negative blood cultures and a negative urine culture. IMAGING: Of the wrist by MRI shows fluid around the extensor carpi middle, radialis longus and brevis tendons as well as extensor indicis and extensor digitorum tendon slips, consistent with tenosynovitis. IMPRESSION: This patient has a very classic hand infection secondary to cat bite. The likely organisms here would be pasteurella, anaerobes, streps, or occasionally Staph aureus. I do not see any particular reason to suspect methicillin-resistant Staphylococcus aureus here in the fact that the patient has already got better on antibiotics, which suggests this is not MRSA infection. The standard antibiotics for these sorts of infections is Unasyn and, I see no reason to give vancomycin or Zosyn, and especially not the combination together as they are quite nephrotoxic. RECOMMENDATIONS: 1. Will change the antibiotics to Unasyn alone. 2. Will start the patient on 3 g q.6 h. of Unasyn, the first dose to be given now. 3. As the patient improves on Unasyn, she can be transitioned back to Augmentin, barring some shocking discover in terms of cultures. 4. I note that the hand surgery team is thinking about doing a bedside I and D and, if this is done, I only ask that cultures be sent for aerobic, anaerobic and AFB organisms, but I really think in this case the likely organism will, in fact, be pasteurella, or perhaps Staph or strep. Thank you very much for this entertaining consult from this delightful woman.
[2016-08-25] MEDS: Heparin 5,000 Unit/mL Inj SUBQ SCH ×2 (08:49→20:27)
--- NOTE | 2016-08-25 09:01 | NUR ---
Ortho Orthopedic Stevie here at bed side for dressing change to left hand and OT will follow after. mild pain or discomfort during dressing change. Patient resumed eating breakfast.
--- NOTE | 2016-08-25 09:28 | PCM.PNORTH ---
Subjective Date of Service: August 25, 2016 Visit Information: Reason for Visit Tenosynovitis Left Hand Surgery/Surgery Date L WRIST I&D 08/24 Post-Op Day # Date of Admission: August 23, 2016 at 20:04 Hospital Day # Subjective Found patient awake and alert and sitting up in bed with no complaints of pain. She is pleasant and talkative. I discussed with patient had I would change her bandage and remove drains today and she was receptive to this. Postop General: No Complaints, No Shortness of Breath, No Chest Pain, Good Appetite Pain Management: PO Objective Exam Objective Alert and oriented 3 and pleasant. Interoperative dressing is clean dry and intact at the left upper extremity distally. Finger wiggle and sensation are intact at the left upper extremity distally. Range of motion at the fingers is limited and somewhat difficult. No compartment syndrome is noted at the left upper extremity. Interoperative dressing and splint are removed and two 6 inch pieces of packing material are removed one from each wound on the dorsal aspect of the hand. Patient tolerated this well. There was mild erythema noted on the dorsal aspect of the hand and some very mild swelling. Left hand was redressed in a professor of music dressing and I will encourage patient to move her fingers hand and wrist. Occupational therapy has been ordered to begin today. Vital Signs and I/O Vital Sign - Last Date Time Temp Pulse Resp B/P Pulse Ox O2 Delivery O2 Flow Rate FiO2 08/25/16 07:50 36.8 79 15 128/61 96 Nasal Cannula 2.00 Intake and Output 08/24/16 08/24/16 08/25/16 Cumulative From/Thru 15:00 23:00 07:00 08/23/16 19:09 - 08/25/16 06:21 Intake Total 1039 ml 335 ml 2069 ml Output Total 400 ml 900 ml Balance 1039 ml -65 ml 1169 ml Intake Oral 120 ml 360 ml IV Total 1039 ml 215 ml 1709 ml Output Urine Total 400 ml 900 ml Lab & Micro Results Laboratory Tests Test 08/25/16 06:00 White Blood Count 8.0th/mm3 (3.8-10.1) Red Blood Count 3.81mil/mm3 (3.90-5.20) Hemoglobin 11.4g/dL (12.0-15.6) Hematocrit 35.3% (35.0-46.0) Mean Corpuscular Volume 92.7fL (81-100) Mean Corpuscular Hemoglobin 29.9pg (27.0-35.0) Mean Corpuscular Hemoglobin Concent 32.3% (32.0-37.0) Red Cell Distribution Width 13.1% (12.3-15.4) Platelet Count 308bil/L (150-400) Neutrophils (%) (Auto) 79.2% (40-74) Lymphocytes (%) (Auto) 8.9% (14-46) Monocytes (%) (Auto) 10.0% (4-12) Eosinophils (%) (Auto) 1.4% (0-5) Basophils (%) (Auto) 0.4% (0-3) Sodium Level 141mEq/L (134-144) Potassium Level 4.3mEq/L (3.5-5.2) Chloride Level 102mEq/L (97-108) Carbon Dioxide Level 26mmol/L (18-29) Blood Urea Nitrogen 11mg/dL (8-27) Creatinine 0.66mg/dL (0.57-1.00) Estimat Glomerular Filtration Rate 121mL/min (>59) Glucose Level 124mg/dL (60-99) Calcium Level 9.0mg/dL (8.5-10.1) Phosphorus Level 3.8mg/dL (2.5-4.9) Magnesium Level 2.0mg/dL (1.6-2.6) Total Bilirubin 0.8mg/dL (0.0-1.2) Aspartate Amino Transf (AST/SGOT) 189U/L (0-50) Alanine Aminotransferase (ALT/SGPT) 138U/L (0-32) Alkaline Phosphatase 276U/L (25-165) Total Protein 5.9g/dL (6.4-8.4) Albumin 3.4g/dL (3.4-5.0) Microbiology 08/23/16 Blood Culture - Preliminary, Resulted NO GROWTH AFTER 24 HOURS 08/24/16 MRSA (PCR) - Final, Complete 08/23/16 Urine Culture - Final, Complete No growth (<1,000 organisms/mL) 08/24/16 Gram Stain - Final, Resulted 08/24/16 Culture & Sensitivity - Preliminary, Resulted No growth to date 08/24/16 Anaerobic Culture, Resulted Pending Result Diagram: 08/25/16 0608/25/16 0600 General Appearance: Alert, Oriented X3, Cooperative, No Acute Distress Extremities: No Compartment Syndrom Noted Postop Sensory Motor: Distal Motor Intact, Movement in Fingers, Distal Sensation Intact Activity: Activity per PT (occupational therapy has been ordered for gentle range of motion at the wrist hand and fingers to begin today.) Assessment & Plan Impression Patient is a 89-year-old female who has suffered a cat bite to left hand with dorsal punctures and infection. This was washed out on 08/24/[address] Ten Cardenas. Patient is awaiting cultures and instructions by Dr. Tejada. Problems: Plan Postop day #1 from left dorsal hand I&D performed on 08/24/[address] Ten Cardenas. Continue weightbearing as tolerated on the lower extremities for patient's baseline and safety. Patient should remain nonweightbearing in the left upper extremity and her wound should be dressed daily and inspected. Continue occupational therapy beginning today for gentle range of motion at the wrist hand and fingers. This has been ordered. Dr. Tejada's has consult on this patient and as always has a detailed plan for antibiotics and cultures etc. in his note. Orthopedics thanks hospitalist service for their help in the medical management of this patient. Anticipated discharge when all microbiology is returned and is determined to be satisfactory and patient's antibiotic choices are clear. VTE Prophylaxis: Sub-Q Heparin (Unfractionated) Resuscitation Status: DNR/DNI:Do Not Resuscitate/Intubate Stevie Trivedi PA-C August 25, 2016 09:28
--- NOTE | 2016-08-25 12:31 | NUR ---
Pain/mentation Patient is alert with mild confusion. Able to make needs known. Stable vital signs and stable oxygen 2L nasal cannula. c/o pain to right hip with movement 10. PRN pain medication given with effective results. new orders for PT and OT to evaluate left hand and transfer status. IV infiltration to right arm, notified Dr. Moore and ICE applied. IV therapy started IV to left upper arm states," run IV ABO at slow rate due to fragile veins." patient had breakfast 85% with out difficulty swallowing. Encouraged PO fluids and tolerating PO fluids. Infectious disease doctor at bed side and aware of pain to right hip and orders for C-diff PCR will be discontinued due to last BM 2 days ago. Continue to monitor pain, vitals signs, and safety.
--- NOTE | 2016-08-25 15:23 | NUR ---
[facility] signed
[2016-08-25] MEDS: Ertapenem Inj 1,000 MG in 0.9% Sodium Chloride 50 ML IV SCH (15:46)
--- NOTE | 2016-08-25 15:49 | NUR ---
Social Work: initial Assessment: Data & assessment: See Initial Assessment. EMR reviewed. Patient is a 89 y/o female that admitted for Tenosynovitis left hand per H&P. SW attempted to meet with patient at bedside, but the patient was in and out of sleep. Quality System Manager call patient daughter Adriana Michael and completed initial assessment via phone. Sw also reviewed SW role and discussed discharge planning. Patient insurance is Medicare and [employer] . patient has no VA or LTC benefits. Patient's re-admit score is 1 no risk. SW requested a copy of patient DPOA. Patient is a resident at [facility]. Patient has history at [facility] and has had HH, but the name is unknown. Patient does not drive and ambulates with a walker. Patient has a PT evaluation pending. SW will continue to follow and assist patient with discharge planning needs. SW wrote contact information on patient's white board and gave patient's daughter, Adriana Michael, SW contact information. Plan: Patient will likely discharge back to [facility]. SW will continue to follow patient for discharge planning needs. Juan Maravilla LMSW, HARSHAD Addendum: 08/26/16 at 1609 by JUAN CONKLIN Amended: Links added.
--- NOTE | 2016-08-25 16:11 | NUR ---
Evaluation completed. Please go to "Notes" then click on "Assessments and Notes" (bottom left corner of screen). Then select appropriate discipline tab on top of screen.
--- NOTE | 2016-08-25 16:22 | PROG NOTE ---
[address] [address] PROGRESS NOTE PATIENT: SANDER CASH : 1925 MR#: [id number] ADMIT: 08/23/2016 JOB ID: [id number] DATE: 08/25/2016 INFECTIOUS DISEASE FOLLOW UP NOTE: REASON FOR FOLLOWUP: Cat bite to left hand with resultant cellulitis and tenosynovitis. INTERVAL HISTORY: Overnight, the patient reports she underwent an I and D by hand surgery. She tolerated that procedure well. This morning she has less pain and swelling of the left hand. No fevers. No chills. No pulmonary or GI symptoms. She does have a lot of right hip pain which is chronic but seems to be increasing. PHYSICAL EXAMINATION: Reveals a comfortable elderly woman in no acute distress. She is afebrile. Temperature 36.9, blood pressure 134/65, pulse 80, respiratory rate 16. She is in no acute distress. Examination of the oral cavity is unremarkable. Lungs fairly clear. Abdomen soft and nontender. The left hand is wrapped in a postop dressing but the visible parts of the left hand are less swollen and tender. The patient's right hip appears uninfected and it is not erythematous or warm but any motion, especially flexion, produces severe pain. LABORATORIES: Include white count 8000, normal differential basically. Creatinine 0.66 but her LFTs are way out. The AST was normal on admission, now 189. ALT now 138. Alk phos now 276. Urinalysis negative. Micro is pending. There are negative blood cultures. Negative urine culture. MRSA screen negative and the culture from the wound done in surgery yesterday is negative so far. We have no additional imaging. IMPRESSION: This patient has a classic cat bite injury to her left hand. She was given Augmentin as an outpatient and failed and is now improving with IV antibiotics, currently Unasyn, and status post I and D. One concern here is that her LFTs are going up rapidly and this can be seen with Augmentin or less likely Unasyn. She has received both already, and at this point, we need to switch to a whole new class of antibiotic. Another concern is her left hip pain. She has it for a long time and an x-ray in May by her primary care doctor showed arthritis but she states it is now worse. RECOMMENDATIONS: 1. Discontinue Unasyn because of possible hepatitis. 2. Start ertapenem 1 g once a day. 3. I would keep the patient at least 2-3 more days to see how her LFTs and hand respond to therapy. 4. It might be reasonable to get an MRI scan of her hip and/or orthopedic surgical consult because her hip seems to be getting worse.
--- NOTE | 2016-08-25 17:17 | NUR ---
CRISTINA alicia ordered. Addendum: 08/25/16 at 1719 by DYLAN CRUZ RN Amended: Links added.
--- NOTE | 2016-08-25 17:17 | PATH ---
SURGICAL PATHOLOGY Attending Physician:Ten Cardenas MD CASE STATUS: Signed Out PATIENT NAME: SANDER CASH PID: [id number] : 1925 DATE COLLECTED:08/23/2016 00:00 SPECIMEN: Synovium CLINICAL HISTORY: LEFT ARM INFECTION 1). LEFT DORSAL WRIST SYNOVIUM FINAL DIAGNOSIS: 1.LEFT DORSAL WRIST, SYNOVIUM, BIOPSY: ACTIVE SYNOVITIS. NO EVIDENCE OF NEOPLASIA. ICD10 CODE M65.842 GROSS DESCRIPTION: The specimen is received in one formalin filled container labeled with the patient's name, sublabeled "left wrist dorsal synovium" and consists of a pink tomlin portion of soft tissue which measures 1.2 x 0.6 0.5 CM. The specimen is inked blue. Sectioned into 4 pieces and entirely submitted in one cassette. 08/25/2016 [facility] MICRO DESCRIPTION: See diagnosis. ICD-9 CODES: CPT CODES: 1: 29174 Electronically Signed Out Lori Blandon MD [facility] [address], [place] [address] Technical component performed at [facility], [facility] [address], [place], [address]
--- NOTE | 2016-08-25 17:18 | NUR ---
patient up with PT to [facility] Addendum: 08/25/16 at 1719 by DYLAN CRUZ RN Amended: Links added.
--- NOTE | 2016-08-25 18:41 | PROG NOTE ---
[address] [address] PROGRESS NOTE PATIENT: SANDER CASH : 1925 MR#: [id number] ADMIT: 08/23/2016 JOB ID: [id number] INFECTIOUS DISEASE FOLLOWUP: DATE: 08/25/2016 REASON FOR FOLLOWUP: Left hand cellulitis and tenosynovitis secondary to cat bite. INTERVAL HISTORY: Overnight, the patient underwent washout the left hand by one of the Orthopedic surgeons. The patient tolerated procedure well. This morning she has diminishing pain and swelling of the hand. No fever, no chills. No cough, no shortness of breath. She does note she has chronic severe pain in her right hip to such a degree that she could not flex it without extreme pain. She states despite this, she is able to walk. An x-ray done several months ago by her primary care doctor showed severe degenerative disease in that hip. The patient believes it is actually worse recently, however. PHYSICAL EXAMINATION: Reveals an afebrile woman, temp 36.9, pulse 80, respiratory rate 16, blood pressure 134/65, saturating well on 2 L. No acute distress. Mental status is normal. Lungs clear. Abdomen benign. The hand is in a postop dressing especially around the wrist. The more distal aspects of the hand look less swollen and less tender than they did yesterday. The patient will not allow any flexion whatsoever or motion of her right hip due to severe pain. LABORATORY DATA: Labs include white count 8000. Diff 79% segs. Creatinine 0.66. She is developing elevated LFTs. Her AST is down to 189, ALT 138, alk phos 276. Urinalysis negative. Micro studies include a postop culture which is pending. Blood cultures are negative. IMPRESSION: This patient has suffered a tenosynovitis secondary to cat bite to her left hand. We do not have any positive cultures yet, but likely organisms would include pasteurella, staphylococcus, streptococcus, or anaerobes. She seems to be doing better with respect to her hand on IV Unasyn. My concern is that she has developed quite a significant hepatitis. Augmentin is occasionally associated with severe hepatitis and recall that this patient did receive at least a couple doses of Augmentin prior to admission, and I think that may be the cause of what we see. It is also possible the Unasyn may be contributing to this process. RECOMMENDATIONS: 1. Will discontinue the Unasyn today out of concern because of the rising LFTs. 2. Will substitute ertapenem in a dose of 1 g once a day. 3. It may be reasonable to keep the patient for at least a couple more days to see what grows in the cultures and also to see if reversal in her elevated LFTs. 4. MRI scan of the right INCOMPLETE DICTATION: Dictation ends here.
[2016-08-25] MEDS ORDERED: Vancomycin Serum Trough XX ONE (23:00)
[2016-08-26 00:30] VITALS: BP 134/65; PULSE 82; RESP 16; O2SAT 96
[2016-08-26] MEDS: Sodium Chloride LOK Flush 10 mL Syringe IV SCH ×3 (00:45→17:13)
--- NOTE | 2016-08-26 04:31 | NUR ---
Shift Note Pt. alert with baseline confusion, uses call light appropriately and able to verbalize needs, c/o of right hip pain,administered prn px meds and applied k-pad per order with a state of relief, Vitals stable, hourly checks, call light in reach and all needs attended.
--- NOTE | 2016-08-26 05:45 | CONS ---
[address] [address] CONSULTATION REPORT PATIENT: SANDER CASH : 1925 MR#: [id number] ADMIT: 08/23/2016 JOB ID: [id number] DATE OF SERVICE: 08/24/2016 ORTHOPEDIC CONSULT: CHIEF COMPLAINT: Left hand pain and swelling. HISTORY OF PRESENT ILLNESS: This is a pleasant 89-year-old, right hand-dominant female that presents with a 3-day history of a left hand cat bite. Her cat that she has had for many years has never bitten her but bit her last Sunday. She progressively have increasing pain and redness to the dorsal aspect of her hand. She eventually saw her primary care physician and was started on Augmentin but did not have any relief in her symptoms. As she was having increased erythema to the hand going up to the elbow, she was advised by her friend to go to the hospital. Upon admission, she was given IV antibiotics, with Orthopedics to consult. Originally, Dr. Shiva Vanegas did consult with the patient with a plan to take her back for an incision and drainage after observation first with IV antibiotics if there was no improvement. She had very mild improvement but still continued to have fluctuance on the dorsal aspect of the hand. Dr. Vanegas was unable to get to the patient in a timely fashion and asked for me to take over her care. I did examine the patient, and she states that she had some mild improvement with the IV antibiotics but continued to have the fluctuant area to her hand that was painful. She also had limited motion to the hand and wrist secondary to the pain. She denies any paresthesias. She denies any other associated symptoms. PAST MEDICAL HISTORY: COPD, diverticulosis, hyperlipidemia, hypothyroidism. PAST SURGICAL HISTORY: Thyroidectomy, tonsillectomy, adenoidectomy, appendectomy, tubal ligation, cataract surgery. FAMILY HISTORY: Noncontributory. SOCIAL HISTORY: The patient drinks a glass of wine a day. Denies any tobacco or illicit drug use. She currently lives in assisted living at [facility]. REVIEW OF SYSTEMS: The patient denies any current fevers, sweats, chills, chest pain, shortness of breath, nausea, vomiting, or diarrhea. Complains mainly of left hand pain as described in history of present illness. PHYSICAL EXAMINATION: General: The patient is alert, in no apparent distress. HEENT: Normocephalic, atraumatic. Extraocular movements intact. Nares patent. Lungs: No audible wheezes. No overt signs of respiratory distress. Neuro: Cranial nerves 2-12 are intact. Extremities: On gross observation of the patient's left hand, at the dorsal aspect of the hand overlying the dorsal radial carpus is an area of fluctuance with erythema that is tender to palpation. The patient has limited extension and flexion of the fingers secondary to reproduction of pain. There was no tenderness along the flexor tendon sheath, only dorsally overlying the extensor digitorum communis and the wrist extensors. There was very minimal erythema progressing proximally up the forearm. She did demonstrate completely intact sensation to the median, radial and ulnar nerve distributions and palpable distal radial and ulnar pulses. DIAGNOSTIC STUDIES: An MRI was obtained that had some motion artifact but did demonstrate fluids surrounding the 2nd and 4th dorsal wrist compartment. Labs were obtained upon admission and demonstrated a white count of 9.6 and an ESR of 44. IMPRESSION: Left hand cat bite. PLAN: Dr. Vanegas did discuss with the patient NSR in the preoperative suite and discussed with her the risks, benefits and indications to proceed with an incision and drainage of the left hand. She was there with a friend. They had all questions answered. They understood the risks included, but were not limited to, neurovascular injury, tendon injury, failure to resolve the infection, stiffness and persistent pain, all of which may require further intervention. The patient had all questions answered. Consent for incision and drainage of the left hand was signed and placed in the chart. Following surgery, the patient will likely have drains placed and will be removed, as well as a splint that will be removed, on postoperative day #1. We will then start her working on range of motion of the hand and wrist, and either await final definitive cultures, or if her symptoms improve by Sunday, she can go home with p.o. empiric antibiotics.
[2016-08-26 05:46] VITALS: BP 149/62; PULSE 85; RESP 16; O2SAT 96
--- NOTE | 2016-08-26 08:42 | OP ---
[address] [address] OPERATIVE REPORT PATIENT: SANDER CASH : 1925 MR#: [id number] ADMIT: 08/23/2016 JOB ID: [id number] DATE OF SURGERY: 08/24/2016 PREOPERATIVE DIAGNOSIS(ES): Left hand abscess and cellulitis secondary to a cat bite. POSTOPERATIVE DIAGNOSIS(ES): 1. Left hand abscess and cellulitis secondary to a cat bite. 2. Left wrist extensor digitorum communis, extensor carpi radialis longus, and extensor carpi radialis brevis tenosynovitis. PROCEDURES: 1. Incision and drainage of left hand. 2. Tenosynovectomy of the extensor digitorum communis. 3. Tenosynovectomy of the extensor carpi radialis longus. 4. Tenosynovectomy of extensor carpi radialis brevis. SURGEON: Ten Cardenas DO ANESTHESIA: General. HISTORY: The patient is an 89-year-old female who sustained a cat bite several days before presentation. She failed outpatient antibiotic treatment and was admitted for IV antibiotics. She continued to have fluctuance and pain to the dorsal aspect of the hand with MRI findings of tenosynovitis to the 2nd and 4th dorsal extensor compartments. I discussed with the patient and her friend the risks, benefits, alternatives, and indications to proceed with incision and drainage of the left hand. They understood the risks include but not limited to neurovascular injury, tendon injury, failure to resolve the infection, stiffness, persistent of pain which may require further intervention. The patient had all questions answered. Consent was signed and placed in the chart. PROCEDURE IN DETAIL: The patient was brought to the operative suite and placed supine on the operating table. Surgical time-out was performed. Everyone in the room was in agreement. After appropriate anesthesia was obtained, a left upper arm tourniquet was applied. Left upper extremity prepped and draped in a sterile fashion. Left upper extremity was then elevated and tourniquet inflated to 250 mmHg. A longitudinal incision was made directly overlying the area of fluctuance centered along the axis of the middle finger. Dissection was carried down to the 4th dorsal compartment distal to the retinaculum which demonstrated significant tenosynovitis. There was copious murky fluid emanated from this area which was culture with Gram stain, aerobic, and anaerobic cultures. A tenosynovectomy was performed to all four tendons of the extensor digitorum communis. Carrying the dissection radially, there was further tenosynovitis to the extensor carpi radialis longus and extensor carpi radialis brevis. Tenosynovectomy was performed to both of the tendons within the 2nd dorsal compartment. Further irrigation was performed followed by closure of the skin after placing two quarter-inch iodoform graft with 4-0 nylon in simple interrupted fashion. The patient was then placed into a bulky soft dressing incorporating a volar resting splint. ESTIMATED BLOOD LOSS: Less than 5 cc. COMPLICATIONS: None. DISPOSITION: The patient tolerated the procedure well. Anesthesia was reversed. The patient was transferred back to recovery. SPECIMENS: Aerobic and anaerobic cultures, as well as Gram stain from the dorsal hand. POSTOPERATIVE PLAN: The patient was admitted back to the floor and continued on empiric antibiotics. The drains as well as the splint will be removed postoperative day number one, and she will start working on wrist and hand range of motion with occupational therapy if she is progressing well. By Sunday, she can be discharged home with empiric p.o. antibiotics with followup in the office in 1-2 weeks.
[2016-08-26] MEDS: Heparin 5,000 Unit/mL Inj SUBQ SCH ×2 (08:43→20:14)
[2016-08-26] MEDS: Ertapenem Inj 1,000 MG in 0.9% Sodium Chloride 50 ML IV SCH (08:43)
[2016-08-26 10:20] VITALS: BP 110/72; PULSE 85; O2SAT 100
--- NOTE | 2016-08-26 10:42 | PCM.PNORTH ---
Subjective Date of Service: August 26, 2016 Visit Information: Reason for Visit Tenosynovitis Left Hand Surgery/Surgery Date L WRIST I&D 08/24 Post-Op Day # Date of Admission: August 23, 2016 at 20:04 Hospital Day # Subjective Found patient awake and alert and sitting up in a chair at her bedside. No complaints of pain in the left hand. Dressing was removed and dorsal aspect of left hand is improved from yesterday with left erythema and only a mild serous drainage. Packing openings in suture line are closing. Patient's mobility was improved at left hand Postop General: No Complaints, No Shortness of Breath, No Chest Pain, Good Appetite Pain Management: PO Objective Exam Objective Alert and cooperative and pleasant and mildly forgetful and not reliable in recent history of advanced. Left hand dressing was clean dry and intact and is removed today and wound is found to be in improved condition. Patient has good sensation present at the left hand and mobility has increased today. There is still some mild swelling in the fingers. Patient has not received any occupational therapy since surgery nor is she likely to have any occupational therapy over the weekend. Physical therapy is working with her for gait and mobility. Vital Signs and I/O Vital Sign - Last Date Time Temp Pulse Resp B/P Pulse Ox O2 Delivery O2 Flow Rate FiO2 08/26/16 05:46 Supplement Oxygen 08/26/16 05:46 37.0 85 16 149/62 96 2.00 Intake and Output 08/25/16 08/25/16 08/26/16 Cumulative From/Thru 15:00 23:00 07:00 08/23/16 19:09 - 08/26/16 05:46 Intake Total 977 ml 200 ml 3246 ml Output Total 600 ml 600 ml 2100 ml Balance 377 ml -400 ml 1146 ml Intake Oral 800 ml 200 ml 1360 ml IV Total 177 ml 1886 ml Output Urine Total 600 ml 600 ml 2100 ml Lab & Micro Results Laboratory Tests Test 08/26/16 06:20 Sodium Level 140mEq/L (134-144) Potassium Level 4.2mEq/L (3.5-5.2) Chloride Level 100mEq/L (97-108) Carbon Dioxide Level 24mmol/L (18-29) Blood Urea Nitrogen 9mg/dL (8-27) Creatinine 0.58mg/dL (0.57-1.00) Estimat Glomerular Filtration Rate 140mL/min (>59) Glucose Level 97mg/dL (60-99) Calcium Level 9.2mg/dL (8.5-10.1) Total Bilirubin 0.4mg/dL (0.0-1.2) Aspartate Amino Transf (AST/SGOT) 96U/L (0-50) Alanine Aminotransferase (ALT/SGPT) 99U/L (0-32) Alkaline Phosphatase 274U/L (25-165) Total Protein 5.9g/dL (6.4-8.4) Albumin 3.4g/dL (3.4-5.0) Microbiology 08/23/16 Blood Culture - Preliminary, Resulted No growth at 2 days; culture examined... 08/24/16 MRSA (PCR) - Final, Complete 08/23/16 Urine Culture - Final, Complete No growth (<1,000 organisms/mL) 08/24/16 Gram Stain - Final, Resulted 08/24/16 Culture & Sensitivity - Preliminary, Resulted 08/24/16 Anaerobic Culture - Preliminary, Resulted Result Diagram: 08/25/16 0600 08/26/16 0620 General Appearance: Alert, Cooperative, No Acute Distress Extremities: No Compartment Syndrom Noted Postop Sensory Motor: Distal Motor Intact, Movement in Fingers, Distal Sensation Intact Activity: Activity per PT (occupational therapy has been ordered for gentle range of motion at the wrist hand and fingers to begin today.) Catheters: None Assessment & Plan Plan Postop day #2 from left dorsal hand I&D performed on 08/24/[address] Ten Cardenas. Continue weightbearing as tolerated on the lower extremities for patient's baseline and safety. Patient should remain nonweightbearing in the left upper extremity for ballistic activities but may use her left hand with a front with a walker. Wound should be dressed daily and inspected. Continue occupational therapy for gentle range of motion at the wrist hand and fingers. This has been ordered. Patient has not received any occupational therapy yet since surgery secondary to therapist was out on Sunday and does not work on the weekends. Dr. Tejada has consult on this patient and as always has a detailed plan for antibiotics and cultures etc. in his note. He has requested patient stay in house over the weekend for fine tuning of antibiotics Orthopedics thanks hospitalist service for their help in the medical management of this patient. Anticipated discharge when all microbiology is returned and is determined to be satisfactory and patient's antibiotic choices are clear and in place. VTE Prophylaxis: Sub-Q Heparin (Unfractionated) Resuscitation Status: DNR/DNI:Do Not Resuscitate/Intubate Stevie Trivedi PA-C August 26, 2016 10:42
--- NOTE | 2016-08-26 15:10 | PCM.PNMED ---
Subjective Date of Service August 26, 2016 Subjective She is seen today to follow up her hand infection, COPD and HTN. 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 She is in a good mood and is quick with a retort. She tells fascinating stories from her life and clearly enjoys social interaction. Her home medicines will need to be ordered. Exam Vital Signs Vital Sign - Last Date Time Temp Pulse Resp B/P Pulse Ox O2 Delivery O2 Flow Rate FiO2 08/26/16 10:20 37.3 85 110/72 100 Nasal Cannula 2.00 08/26/16 05:46 16 Intake and Output 08/25/16 08/25/16 08/26/16 Cumulative From/Thru 15:00 23:00 07:00 08/23/16 19:09 - 08/26/16 05:46 Intake Total 977 ml 200 ml 3246 ml Output Total 600 ml 600 ml 2100 ml Balance 377 ml -400 ml 1146 ml Intake Oral 800 ml 200 ml 1360 ml IV Total 177 ml 1886 ml Output Urine Total 600 ml 600 ml 2100 ml Exam Heart: RRR without murmur Lungs: CTAB Abd: Soft, BS+, Not tender, no masses Ext: No ankle edema. The back of the left hand is swollen. The dressing is clean. IVs and Medications Medications Reviewed: Medications were reviewed in detail Lab and Diagnostics Result Diagram: 08/25/16 0600 08/26/16 0620 Assessment & Plan Ms. Cindy Stallings came here with worsening pain and erythema of the left hand following a cat bite on Sunday08/19/2016. She visited her doctor on the following Sunday and was started on appropriate antibiotic therapy of Augmentin 875 mg twice a day. Since Sunday her pain, redness, swelling and decreased range of motion have worsened, even with the addition of antibiotics. The redness has extended from her hand to her elbow starting today noted by patient's roommate. Patient's pain is rated anywhere from 5 to a 10 out of 10 sharp and along the dorsal aspect of the radial carpal joint. There is a 3 x 3 fluctuant erythematous mass on the dorsal aspect of the radial carpal joint on the left hand. She denies syncope, dizziness, headache, chest pain, nausea, vomiting, diaphoresis, fever, chills, abdominal pain, dysuria, constipation. She reports chronic shortness of breath and new onset of normal color diarrhea today, which she states is very abnormal. She has a past medical history significant for COPD on home O2 of 2 L with a long history of tobacco use 75 years 1.5 packs per day but is currently a nonsmoker, left bundle branch block, hyperlipidemia, osteoarthritis. acute, active 1. Tenosynovitis of the left hand, present on admission. Active, Second 2 traumatic Bite on 08/19/2016, As an outpatient received 3 days of Augmentin 875 mg twice a day without improvement of symptoms. Tetanus received in 2010.no risks of Rabies. -clinically improving with current tx, -appreciate Orthopedic I&D 08/24, culture - In the emergency department patient received IV metronidazole, clindamycin, meropenem, switched to vanc, zosyn. -awaits Blood culture. Nasal MRSA swab -appreciate ID input - on unasyn now chronic, stable 2. COPD, present on admission. Stable. - Continue 2 L O2 by nasal cannula. - Patient states that she takes a daily nebulizer unknown at this point. 3. Hyperlipidemia, present admission. Stable. - Continue Rosuvastatin 4. Hypertension, present on admission. Stable. - Continue Lisinopril 2.5 5. History of partial thyroidectomy, - On the patient's Mar and med list she is prescribed Synthroid however patient says she does not need thyroid replacement therapy. It's on her list so will be resumed today. 6. Acute diarrhea, present on admission. Active. - resolved when Augmentin was stopped. 7. 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 Social: Patient's ambulatory status is questionable as of a mentioned a right hip injury 2 years ago with ineffective physical therapy and no relief of pain. She continues to have a functional disability where she requires aid and walker for ambulation. Subjectively she mentioned a current evaluation for possible hip surgery, unspecified and unconfirmed. Acetaminophen for mild pain when necessary. Bowel regimen Senna and MiraLAX scheduled and PRN. Zofran when necessary for nausea and vomiting. SubQ heparin cont SCDs in place. Disposition: within 1 more day, home GI Prophylaxis: Not indicated VTE Prophylaxis: Sub-Q Heparin (Unfractionated) Resuscitation Status: DNR/DNI:Do Not Resuscitate/Intubate Maryanne Stein MD August 26, 2016 12:01
[2016-08-26] MEDS ORDERED: Albuterol 2.5 mg/3 mL Inhalation Solution NEB PRN (16:00)
[2016-08-26 17:15] VITALS: BP 143/73; PULSE 90; RESP 20; O2SAT 96
--- NOTE | 2016-08-26 18:13 | NUR ---
mobility/pain/memory/left hand pt up with 1 assist to BSC/chair for meals pt usually uses 4WW at home, difficult to use walker here d/t discomfort in left hand with pressure. c/o of right hip pain. first time up very difficuly, painful, tylenol given for effective relief. daughter request no narcotic be given as is causes confusion. Pt able to sit up for all meals up to BSC x4-5 Pain in right hip better as day progressed, reported no need for further pain rx at this time. Pt forgetful, not remembering she is in the hospital, or what time of day. pleasant and easily re-directed. left had rewrapped by . pt reports feels better. Hand swells when dependant, enc pt to elevate.
[2016-08-26 20:30] VITALS: BP 149/68; PULSE 95; RESP 20; O2SAT 97
[2016-08-27] MEDS: Sodium Chloride LOK Flush 10 mL Syringe IV SCH ×3 (01:03→16:30)
[2016-08-27 02:14] VITALS: BP 138/75; PULSE 88; RESP 18; O2SAT 97
--- NOTE | 2016-08-27 04:12 | NUR ---
Mobility Pt. has been walking to the BR with FWW and 1 PA this shift, reports of less pain when moving, Pt. uses call light effectively, alert with baseline confusion/forgetfulness, pleasant and cooperative with care, call light in reach, hourly checks, vitals stable, will continue to monitor.
[2016-08-27 06:02] VITALS: BP 154/63; PULSE 78; RESP 18; O2SAT 96
--- NOTE | 2016-08-27 07:24 | PCM.PNORTH ---
Subjective Date of Service: August 27, 2016 Visit Information: Reason for Visit Tenosynovitis Left Hand Surgery/Surgery Date L WRIST I&D 08/24 Post-Op Day # Date of Admission: August 23, 2016 at 20:04 Hospital Day # Subjective Found patient awake and alert this morning and well positioned in bed. No complaints of discomfort. Discussed with patient again this morning the need for range of motion at the wrist hand and fingers and demonstrated this for her. Patient is very pleasant and talkative but there is an apparent baseline level of dementia that makes history reporting and following directions difficult. Postop General: No Complaints, No Shortness of Breath, No Chest Pain, Good Appetite Pain Management: PO Objective Exam Objective Patient is alert and pleasant. Postoperative dressing is removed this morning and wound is inspected. Wound is found to be in good condition with incision closing nicely and little to no drainage. No compartment syndrome is noted. Finger movement and sensation are intact in left upper extremity distally. Fingers are somewhat stiff in flexion and extension. Wound is redressed this morning in a technology adoption manager dressing without Levi wrap to facilitate greater range of motion at the wrist hand and fingers. Vital Signs and I/O Vital Sign - Last Date Time Temp Pulse Resp B/P Pulse Ox O2 Delivery O2 Flow Rate FiO2 08/27/16 06:02 36.4 78 18 154/63 96 Nasal Cannula 2.00 Intake and Output 08/26/16 08/26/16 08/27/16 Cumulative From/Thru 15:00 23:00 07:00 08/23/16 19:09 - 08/27/16 06:02 Intake Total 910 ml 300 ml 4456 ml Output Total 600 ml 2700 ml Balance 310 ml 300 ml 1756 ml Intake Oral 840 ml 300 ml 2500 ml IV Total 70 ml 1956 ml Output Urine Total 600 ml 2700 ml # Voids 3 3 # Bowel Movements 3 2 5 Lab & Micro Results Laboratory Tests Test 08/27/16 05:50 Sodium Level 142mEq/L (134-144) Potassium Level 4.3mEq/L (3.5-5.2) Chloride Level 103mEq/L (97-108) Carbon Dioxide Level 27mmol/L (18-29) Blood Urea Nitrogen 10mg/dL (8-27) Creatinine 0.54mg/dL (0.57-1.00) Estimat Glomerular Filtration Rate 152mL/min (>59) Glucose Level 94mg/dL (60-99) Calcium Level 9.1mg/dL (8.5-10.1) Total Bilirubin 0.4mg/dL (0.0-1.2) Aspartate Amino Transf (AST/SGOT) 45U/L (0-50) Alanine Aminotransferase (ALT/SGPT) 66U/L (0-32) Alkaline Phosphatase 208U/L (25-165) Total Protein 5.6g/dL (6.4-8.4) Albumin 3.2g/dL (3.4-5.0) Microbiology 08/23/16 Blood Culture - Preliminary, Resulted No growth at 2 days; culture examined... 08/24/16 MRSA (PCR) - Final, Complete 08/23/16 Urine Culture - Final, Complete No growth (<1,000 organisms/mL) 08/24/16 Gram Stain - Final, Resulted 08/24/16 Culture & Sensitivity - Preliminary, Resulted 08/24/16 Anaerobic Culture - Preliminary, Resulted Result Diagram: 08/25/16 0600 08/27/16 0550 General Appearance: Alert, Cooperative, No Acute Distress Extremities: No Compartment Syndrom Noted Postop Sensory Motor: Distal Motor Intact, Movement in Fingers, Distal Sensation Intact Activity: Activity per PT (occupational therapy has been ordered for gentle range of motion at the wrist hand and fingers to begin today.) Catheters: None Assessment & Plan Impression Cindy Guaman is a 89-year-old female seen today 3 days status post left dorsal hand I&D. Her wound condition continues to improve and she has moderate mobility at the wrist hand and fingers that finds it difficult to perform meaningful range of motion on her own. She is not had occupational therapy for 3 days secondary to this not being available per hospital scheduling. Problems: Plan Postop day #3 from left dorsal hand I&D performed on 08/24/[address] Ten Cardenas. Continue weightbearing as tolerated on the lower extremities per patient's baseline and safety with formal physical therapy.. Patient should remain nonweightbearing in the left upper extremity for ballistic activities but may use her left hand with a front wheeled walker. Left dorsal hand wound is inspected today and continues to to look better with no erythema and no drainage and dorsal incision closing. This is re-bandaged with a technology adoption manager dressing to facilitate greater range of motion. Patient has been encouraged to move her wrist hand and fingers during the day which she finds it difficult to remember to do.. Continue occupational therapy for gentle range of motion at the wrist hand and fingers. This has been ordered. Patient has not received any occupational therapy yet since surgery secondary to therapist was out on Sunday and does not work on the weekends. Dr. Tejada has consulted on this patient and as always has a detailed plan for antibiotics and cultures etc. in his note. He has requested patient stay in house over the weekend for fine tuning of antibiotics as results are available. Orthopedics thanks hospitalist service for their help in the medical management of this patient. Anticipated discharge when all microbiology is returned and is determined to be satisfactory and patient's antibiotic choices are clear and in place per Dr. Tejada. VTE Prophylaxis: Sub-Q Heparin (Unfractionated) Resuscitation Status: DNR/DNI:Do Not Resuscitate/Intubate Stevie Trivedi PA-C August 27, 2016 07:24
[2016-08-27 08:33] VITALS: BP 144/70; PULSE 80; RESP 20; O2SAT 96
[2016-08-27] MEDS: Heparin 5,000 Unit/mL Inj SUBQ SCH ×2 (08:50→20:48)
[2016-08-27] MEDS: Ertapenem Inj 1,000 MG in 0.9% Sodium Chloride 50 ML IV SCH (09:48)
--- NOTE | 2016-08-27 10:58 | PCM.PNMED ---
Subjective Date of Service August 27, 2016 Subjective Her wrist is feeling better. Less pain. She does have a firm on her right hip pain which is limiting her ability to ambulate all over. She does have a strong aversion to intermediate will like to return to her independent residential home with home health instead. In any case she does use a cane and/ or walker intermittently and has not really exhibited the ability to walk safely. She does however continue to receive her ertapenem IV for her wrist infection. No overnight events Exam Vital Signs Vital Sign - Last Date Time Temp Pulse Resp B/P Pulse Ox O2 Delivery O2 Flow Rate FiO2 08/27/16 09:23 Nasal Cannula 08/27/16 06:02 36.4 78 18 154/63 96 2.00 Intake and Output 08/26/16 08/26/16 08/27/16 Cumulative From/Thru 15:00 23:00 07:00 08/23/16 19:09 - 08/27/16 06:02 Intake Total 910 ml 300 ml 4456 ml Output Total 600 ml 2700 ml Balance 310 ml 300 ml 1756 ml Intake Oral 840 ml 300 ml 2500 ml IV Total 70 ml 1956 ml Output Urine Total 600 ml 2700 ml # Voids 3 3 # Bowel Movements 3 2 5 Exam Alert and oriented -3, no distress. Fluent speech Anicteric sclera. Lungs are clear with normal rate and effort Heart is regular without murmur gallop or rub Abdomen soft nontender, flat Extremities are free of edema. Skin is free of rash or lesions. Left wrist is wrapped and has good flexion and extension. Good cap refill of all fingers Right hip no pain with rotation in the hip joint however she does have pain with passive hip flexion. IVs and Medications Medications Reviewed: Medications were reviewed in detail Lab and Diagnostics Result Diagram: 08/25/16 0600 08/27/16 0550 Assessment & Plan Ms. Cindy Stallings came here with worsening pain and erythema of the left hand following a cat bite on Sunday08/19/2016. She visited her doctor on the following Sunday and was started on appropriate antibiotic therapy of Augmentin 875 mg twice a day. Since Sunday her pain, redness, swelling and decreased range of motion have worsened, even with the addition of antibiotics. The redness has extended from her hand to her elbow starting today noted by patient's roommate. Patient's pain is rated anywhere from 5 to a 10 out of 10 sharp and along the dorsal aspect of the radial carpal joint. There is a 3 x 3 fluctuant erythematous mass on the dorsal aspect of the radial carpal joint on the left hand. She denies syncope, dizziness, headache, chest pain, nausea, vomiting, diaphoresis, fever, chills, abdominal pain, dysuria, constipation. She reports chronic shortness of breath and new onset of normal color diarrhea today, which she states is very abnormal. She has a past medical history significant for COPD on home O2 of 2 L with a long history of tobacco use 75 years 1.5 packs per day but is currently a nonsmoker, left bundle branch block, hyperlipidemia, osteoarthritis. #. Tenosynovitis of the left hand, present on admission. Active, and improved. Second 2 traumatic Bite on 08/19/2016, As an outpatient received 3 days of Augmentin 875 mg twice a day without improvement of symptoms. Tetanus received in 2010.no risks of Rabies. -clinically improving with current tx, -appreciate Orthopedic I&D 08/24, culture - In the emergency department patient received IV metronidazole, clindamycin, meropenem, switched to vanc, zosyn. -awaits Blood culture. Nasal MRSA swab -appreciate ID input - on ertapenem. #. Acute on chronic right hip pain. This appears to be muscular based on exam today. This is stable but still is causing significant limitation. We will continue physical therapy. She has adverse effects to oxycodone. This. We will use Tylenol for pain. #. COPD, present on admission. Stable. - Continue 2 L O2 by nasal cannula. - Patient states that she takes a daily nebulizer unknown at this point. #. Hyperlipidemia, present admission. Stable. - Continue Rosuvastatin #. Hypertension, present on admission. Stable. - Continue Lisinopril 2.5 #. History of partial thyroidectomy, - On the patient's Mar and med list she is prescribed Synthroid however patient says she does not need thyroid replacement therapy. It's on her list so will be resumed today. #. Acute diarrhea, present on admission. Resolved. - resolved when Augmentin was stopped. SubQ heparin cont SCDs in place. Disposition: The patient lives at a residential home, she has not exhibited safety for return home but that is her strong desire. We will have physical therapy see her again this afternoon and tomorrow morning and [facility] did discharge her back to her independent residential home with home health. We will also have to discuss and finalize a antibiotic plan which may simply be resumption of oral antibiotics. However Augmentin did cause diarrhea. GI Prophylaxis: Not indicated VTE Prophylaxis: Sub-Q Heparin (Unfractionated) Resuscitation Status: DNR/DNI:Do Not Resuscitate/Intubate Alex Lam MD August 27, 2016 10:58
--- NOTE | 2016-08-27 13:43 | NUR ---
Social Work: Continued Discharge Planning Data & Assessment: SW spoke with patient's daughter, Adriana Michael, and notified her of the order for [facility] and provided her with a list of choice. She voiced understanding and chose [facility]. Patient was also in agreement. SW will give [facility] access to the patient's chart and fax face sheet. PAS[facility] and paperwork is on the patient's chart. SW will continue to follow and assist patient throughout stay. Plan: Patient will likely discharge to [facility] via cabulance if accepted. SW continue to follow and assist patient with discharge planning needs. Kat Maravilla LMSW, ACM
--- NOTE | 2016-08-27 14:24 | NUR ---
[facility] signed
--- NOTE | 2016-08-27 14:36 | NUR ---
Mobility/OOB tolerance Pt c/t need assistance w/ ambulation, tolerates it well enough, but is very resistant to getting OOB. Pt tires easily and quickly wants to return to bed. Pt has been encouraged to get to chair for meals and to get up frequently, pt refuses often, but whenever she's willing we get her up. Will continue to encourage.
--- NOTE | 2016-08-27 15:27 | PROG NOTE ---
[address] [address] PROGRESS NOTE PATIENT: SANDER CASH : 1925 MR#: [id number] ADMIT: 08/23/2016 JOB ID: [id number] DATE: 08/27/2016 REASON FOR FOLLOWUP: Cat bite, left hand, with severe tenosynovitis. INTERVAL HISTORY: The patient continues to receive IV ertapenem. Recall that we switched off of Augmentin and later Unasyn because of rising LFTs, which are now improving. She is tolerating the ertapenem well and notes that her hand is improving. No fevers, chills, sweats, cough, or other complaints. She is anxious to return to her assisted home. She continues to have considerable hip pain, and Physical Therapy is working with her regarding this hip pain which is thought to be due to severe degenerative joint disease. PHYSICAL EXAMINATION: Reveals an afebrile woman who is now in her 5th day here in the hospital. Temp 36.4, and she is looking quite well. Pulse 78, respiratory rate 18, blood pressure 154/63, saturating well on 2 L. No acute distress. Oral cavity negative. Lungs clear. Left hand less swollen, less tender, and with increased range of motion. No evidence of ongoing significant infection, by exam anyway. LABORATORIES: Include white count 8000 two days ago, not repeated. She did have a creatinine today 0.54. Her LFTS continued to improve. AST is down to 45. Alk phos down to 208. Both were much more elevated a few days ago. The culture from the hand is negative. Blood cultures negative. No new images available. IMPRESSION: This patient is doing quite well at this point. I discussed this case with Orthopedics and we agree that she is getting close to the point where she could be discharged. One problem will be the follow on antibiotics since either Augmentin or Unasyn caused her LFTs to bump and both certainly can do that. I would not send her out on oral Augmentin which is our usual cat bite drug. Moxifloxacin may be a reasonable option here and I would consider using it. I checked and did not see any obvious drug interactions and her QTc is not bad at 0.46. RECOMMENDATIONS: 1. Will continue with IV ertapenem once a day as long as she is here in the hospital. 2. When it is time to go I think I would give her perhaps 3-5 days maximum of oral moxifloxacin. Note that moxifloxacin is probably a bit better in this circumstance than levofloxacin. 3. ID will go ahead and sign off on this case at this point, as there is little in the way of active issues but please do not hesitate to call me if there are issues or problems with respect to her upcoming discharge, perhaps in the next day or two.
[2016-08-27 18:11] VITALS: BP 134/66; PULSE 78; RESP 18; O2SAT 95
[2016-08-27 20:46] VITALS: BP 147/66; PULSE 71; RESP 18; O2SAT 96
[2016-08-28 02:12] VITALS: BP 139/57; PULSE 69; RESP 16; O2SAT 96
[2016-08-28] MEDS: Sodium Chloride LOK Flush 10 mL Syringe IV SCH ×2 (02:35→08:21)
--- NOTE | 2016-08-28 04:16 | NUR ---
pain/mobility pt c/o 10/16 right leg pain.administered scheduled Tylenol. pt respond pain relief by resting quietly in bed with eyes closed and didn't voice pain afterward. pt used BSC multiple times during this night. left arm surgical sight intact for circulation, sensation, and motion. capillary refill WNL (<3 sec.). will continue to monitor.
[2016-08-28 06:17] VITALS: BP 162/53; PULSE 74; RESP 16; O2SAT 98
[2016-08-28 06:47] LABS: Mean Corpuscular Hemoglobin 29.3 pg (27.0-35.0); Mean Corpuscular Volume 92.4 fL (81-100)
[2016-08-28 06:48] LABS: BASOPHILS % (AUTO) 0.6 % (0-3); EOSINOPHILS % (AUTO) 4.4 % (0-5); MONOCYTES % (AUTO) 12.2 % (4-12); NEUTROPHILS % (AUTO) 60.3 % (40-74); Platelet Count 346 bil/L (150-400)
[2016-08-28 06:50] LABS: Magnesium 2.1 mg/dL (1.6-2.6)
[2016-08-28] MEDS: Heparin 5,000 Unit/mL Inj SUBQ SCH (08:24)
[2016-08-28] MEDS: Ertapenem Inj 1,000 MG in 0.9% Sodium Chloride 50 ML IV SCH (09:11)
--- NOTE | 2016-08-28 09:40 | NUR ---
Evaluation completed. Please go to "Notes" then click on "Assessments and Notes" (bottom left corner of screen). Then select appropriate discipline tab on top of screen.
--- NOTE | 2016-08-28 11:02 | PCM.DIMED ---
Discharge Instructions Date of Service August 28, 2016 Dates of Hospitalization August 23, 2016 at 20:04 Discharge Diagnosis Discharge Diagnosis #. Tenosynovitis of the left hand, present on admission. Active, and improved. Second 2 traumatic Bite on 08/19/2016, #. chronic right hip pain. #. COPD, present on admission. Stable. #. Hyperlipidemia, present admission. Stable. #. Hypertension, present on admission. Stable. #. History of partial thyroidectomy, #. Acute diarrhea, present on admission. Resolved. Diet Discharge Diet: Low fat, Low Sodium Activity Discharge Activity: Other (continue PT at SNF) Call your provider Call your provider for: Fever or Chills, Shortness of breath, Bleeding, Chest pain, Vomitting, Excessive diarrhea, Weakness (unilateral) Patient Instructions Patient Instructions You were hospitalized due tenosynovitis of the left hand,underwent I&D .Please continue Moxifloxacillin for 3 days . Follow-up Provider: Nathen Harrison MD Follow-up with PCP in: 1 week Provider: Ten Cardenas DO Follow-up in: 2 weeks Phoenix Romeo MD August 28, 2016 11:02
[2016-08-28] MEDS ORDERED: MOXI400T32 PO (11:04)
--- NOTE | 2016-08-28 11:05 | NUR ---
Spoke with Marlen Titus patient accounts coordinator at [facility] and she is able to accept patient today with Marciano to follow. Updated FISH HATCHERY INSPECTOR Addendum: 08/28/16 at 1119 by EVE FREED Followed up with Marlen and asked her for 1330 picking machine operator. Updated FISH HATCHERY INSPECTOR Addendum: 08/28/16 at 1146 by EVE FREED Faxed orders to [facility] and place copy in the chart
--- NOTE | 2016-08-28 11:51 | NUR ---
Social Work-discharge: Data:EMR Reviewed. Pt is on day 5 of hospitalization for tenosynovitis per H&P. Pt is medically stable for discharge. PT continues to recommend SNF. Pt to go out on oral abx. UR specialist arranged transport for 1330 and created packet. SW updated pt and daughter Abi at bedside of discharge time and plan, both agreeable. UR specialist has informed Marlen from [facility] and faxed orders. RN,UC,pt/family, and [facility] all updated and agreeable to plan. Assessment:Pt to benefit from SNF. Plan:Pt to discharge to [facility] today via cabulance at 1330.RN,UC,pt/family, and [facility] all updated and agreeable to plan. TRACIE Louis
--- NOTE | 2016-08-28 12:04 | PCM.DC.MED ---
Discharge Summary Date of Service August 28, 2016 Dates of Hospitalization Date of Hospital Admission August 23, 2016 at 20:04 Date of Discharge: August 28, 2016 Providers: Admitting Physician: Stefan Hernandez MD Primary Care Physician: Nathen Rodriguez MD Attending Physician: Stefan Hernandez MD Diagnosis at Time of Discharge Diagnosis at Time of Discharge #. Tenosynovitis of the left hand, present on admission. Active, and improved. Second 2 traumatic Bite on 08/19/2016, #. chronic right hip pain. #. COPD, present on admission. Stable. #. Hyperlipidemia, present admission. Stable. #. Hypertension, present on admission. Stable. #. History of partial thyroidectomy, #. Acute diarrhea, present on admission. Resolved. Consultations ID Dr barrera orthopedics Dr Cardenas Procedures ECG 12 Lead PROCEDURE: WRIST RIGHT WITHOUT CONTRAST ([id number]) INDICATIONS: TENOSYNOVITIS IMPRESSION: Severely motion degraded examination as detailed above, however within those constraints, there is fluid surrounding the extensor carpi radialis longus and brevis tendons as well as the extensor indicis and extensor digitorum tendon slips, in keeping with tenosynovitis. Additional T2 hyperintensity/edema involving the flexor tendons at the level of the distal radial margin raising possibility of carpal tunnel syndrome. Please correlate clinically. Severe right wrist osteoarthritis. Dictated by: Chip Cullen M.D. on 08/24/2016 at 11:22 Brief History per HPI Mrs. Cindy Stallings is a very pleasant 89-year-old lady here today with worsening pain and erythema of the left hand following a cat bite on Sunday. She visited her doctor on the following Sunday and was started on appropriate antibiotic therapy of Augmentin 875 mg twice a day. Since Sunday her pain, redness, swelling and decreased range of motion have worsened, even with the addition of antibiotics. The redness has extended from her hand to her elbow starting today noted by patient's roommate. Patient's pain is rated anywhere from 5 to a 10 out of 10 sharp and along the dorsal aspect of the radial carpal joint. There is a 3 x 3 fluctuant erythematous mass on the dorsal aspect of the radial carpal joint on the left hand. She denies syncope, dizziness, headache, chest pain, nausea, vomiting, diaphoresis, fever, chills, abdominal pain, dysuria, constipation. She reports chronic shortness of breath and new onset of normal color diarrhea today, which she states is very abnormal. She has a past medical history significant for COPD on home O2 of 2 L with a long history of tobacco use 75 years 1.5 packs per day but is currently a nonsmoker, left bundle branch block, hyperlipidemia, osteoarthritis. Medication list at this point is incomplete work on med reconciliation. In the emergency department on admission temperature of 36.9, pulse 82, respiratory rate 20, blood pressure 121/60, pulse ox 96 on 2 L nasal cannula. Laboratories unremarkable with normal white count hemoglobin 11.7, neuts 75.3, lymphs 10.4, monocytes 12.7, completely benign CMP, lactic acid of 1.0 In the emergency department patient received IV antibiotics including clindamycin, metronidazole, meropenem. Hospital Course Ms. Cindy Stallings came here with worsening pain and erythema of the left hand following a cat bite on Sunday08/19/2016. She visited her doctor on the following Sunday and was started on appropriate antibiotic therapy of Augmentin 875 mg twice a day. Since Sunday her pain, redness, swelling and decreased range of motion have worsened, even with the addition of antibiotics. The redness has extended from her hand to her elbow starting today noted by patient's roommate. Patient's pain is rated anywhere from 5 to a 10 out of 10 sharp and along the dorsal aspect of the radial carpal joint. There is a 3 x 3 fluctuant erythematous mass on the dorsal aspect of the radial carpal joint on the left hand. She denies syncope, dizziness, headache, chest pain, nausea, vomiting, diaphoresis, fever, chills, abdominal pain, dysuria, constipation. She reports chronic shortness of breath and new onset of normal color diarrhea today, which she states is very abnormal. She has a past medical history significant for COPD on home O2 of 2 L with a long history of tobacco use 75 years 1.5 packs per day but is currently a nonsmoker, left bundle branch block, hyperlipidemia, osteoarthritis. #. Tenosynovitis of the left hand, present on admission. Active, and improved. Second 2 traumatic Bite on 08/19/2016, As an outpatient received 3 days of Augmentin 875 mg twice a day without improvement of symptoms. Tetanus received in 2010.no risks of Rabies. -clinically improving with current tx, -appreciate Orthopedic I&D 08/24, culture - In the emergency department patient received IV metronidazole, clindamycin, meropenem, switched to vanc, zosyn. Eventually to ertapenem. She will be discharged on moxifloxacin for 3 more days per ID. - Negative Blood culture. -appreciate ID input - . #. Acute on chronic right hip pain. This appears to be muscular based on exam today. This is stable but still is causing significant limitation. continue physical therapy at senior living facility. She has adverse effects to oxycodone. This. We will use Tylenol for pain. #. COPD, present on admission. Stable. - Continue 2 L O2 by nasal cannula. - Patient states that she takes a daily nebulizer unknown at this point. #. Hyperlipidemia, present admission. Stable. - Continue Rosuvastatin #. Hypertension, present on admission. Stable. - Continue Lisinopril 2.5 #. History of partial thyroidectomy, - On the patient's Mar and med list she is prescribed Synthroid however patient says she does not need thyroid replacement therapy,it was resumed on admission.. Clarified with patient. Patient hasn't filled in Synthroid prescription since 2014. She was told she does not need replacement. Discontinued upon discharge #. Acute diarrhea, present on admission. Resolved. - resolved when Augmentin was stopped. SubQ heparin cont SCDs in place. Disposition: Discharged skin nursing facility [facility] Condition on discharge stable and improved Exam Vital Signs (Last) Date Time Temp Pulse Resp B/P Pulse Ox O2 Delivery O2 Flow Rate FiO2 08/28/16 06:17 36.7 74 16 162/53 98 Nasal Cannula 2.00 Exam Alert and oriented -3, no distress. Fluent speech Anicteric sclera. Lungs are clear with normal rate and effort Heart is regular without murmur gallop or rub Abdomen soft nontender, flat Extremities are free of edema. Skin is free of rash or lesions. Left wrist is wrapped and has good flexion and extension. Good cap refill of all fingers Right hip no pain with rotation in the hip joint however she does have pain with passive hip flexion. Test 08/23/16 20:00 08/23/16 21:44 08/25/16 06:00 08/28/16 06:05 Erythrocyte Sedimentation Rate 44mm/hr (0-40) Lactic Acid Level 1.0mmol/L (0.4-2.0) Urine Color Yellow (YELLOW) Urine Appearance Clear (CLEAR,HAZY) Urine pH 6.0 (5.0-8.0) Urine Specific [place] 1.007 (1.003-1.035) Urine Protein Negativemg/dL (NEG,TRACE) Urine Glucose (UA) Negativemg/dL (NEGATIVE) Urine Ketones Negativemg/dL (NEGATIVE) Urine Occult Blood Small (NEGATIVE) Urine Nitrite Negative (NEGATIVE) Urine Bilirubin Negative (NEGATIVE) Urine Urobilinogen Normalmg/dL (NORMAL) Urine Leukocyte Esterase Small (NEGATIVE) Urine RBC 0-2/hpf (0-2) Urine WBC 0-5/hpf (0-5) Urine Epithelial Cells Occasional/hpf (NONE-MOD) Urine Crystals None seen (NONE SEEN) Urine Bacteria None/hpf (NONE-FEW) Urine Hyaline Casts None/lpf (NONE) Urine Granular Casts None seen (NONE SEEN) Urine Waxy Casts None seen (NONE SEEN) Urine Red Blood Cell Casts None seen (NONE SEEN) Urine White Blood Cell Casts None seen (NONE SEEN) Urine Mucus None seen (None Seen) Urine Trichomonas None seen (NONE SEEN) Urine Yeast None (NONE SEEN) Urine Culture Reflexed Indicated Phosphorus Level 3.8mg/dL (2.5-4.9) White Blood Count 5.0th/mm3 (3.8-10.1) Red Blood Count 3.82mil/mm3 (3.90-5.20) Hemoglobin 11.2g/dL (12.0-15.6) Hematocrit 35.3% (35.0-46.0) Mean Corpuscular Volume 92.4fL (81-100) Mean Corpuscular Hemoglobin 29.3pg (27.0-35.0) Mean Corpuscular Hemoglobin Concent 31.7% (32.0-37.0) Red Cell Distribution Width 12.9% (12.3-15.4) Platelet Count 346bil/L (150-400) Neutrophils (%) (Auto) 60.3% (40-74) Lymphocytes (%) (Auto) 22.3% (14-46) Monocytes (%) (Auto) 12.2% (4-12) Eosinophils (%) (Auto) 4.4% (0-5) Basophils (%) (Auto) 0.6% (0-3) Sodium Level 144mEq/L (134-144) Potassium Level 4.5mEq/L (3.5-5.2) Chloride Level 104mEq/L (97-108) Carbon Dioxide Level 30mmol/L (18-29) Blood Urea Nitrogen 11mg/dL (8-27) Creatinine 0.62mg/dL (0.57-1.00) Estimat Glomerular Filtration Rate 130mL/min (>59) Glucose Level 94mg/dL (60-99) Calcium Level 9.3mg/dL (8.5-10.1) Magnesium Level 2.1mg/dL (1.6-2.6) Total Bilirubin 0.3mg/dL (0.0-1.2) Aspartate Amino Transf (AST/SGOT) 35U/L (0-50) Alanine Aminotransferase (ALT/SGPT) 54U/L (0-32) Alkaline Phosphatase 188U/L (25-165) Total Protein 5.8g/dL (6.4-8.4) Albumin 3.3g/dL (3.4-5.0) Discharge Medications Discharge Medications Acetaminophen (Acetaminophen) 500 Mg Tablet 500 MG PO BID (Reported) Albuterol Neb Soln (Albuterol Neb Soln) 2.5 Mg/3 Ml Vial.neb 2.5 MG INHALATION QAM (Reported) Aspirin Chew (Aspirin Chew) 81 Mg Tab.chew 81 MG PO DAILY Prescribed by: NATHEN RODRIGUEZ MD Garlic (Garlic) 200 Mg Tablet 400 MG PO QAM (Reported) Lisinopril (Lisinopril) 5 Mg Tablet 2.5 MG PO HS (Reported) Moxifloxacin (Moxifloxacin) 400 Mg Tablet 400 MG PO DAILY Prescribed by: GABINO HONEYCUTT MD Multivitamin (Multi Vitamin Daily) 1 Each Tablet 1 EACH PO QAM (Reported) Rosuvastatin Calcium (Rosuvastatin Calcium) 20 Mg Tablet 20 MG PO HS (Reported) Followup Plan Disposition: [facility] nursing [facility] Discharge Diet: Low fat, Low Sodium Discharge Activity: Other (continue PT at SNF) Patient Instructions You were hospitalized due tenosynovitis of the left hand,underwent I&D .Please continue Moxifloxacillin for 3 days . Follow-up Provider: Nathen Rodriguez MD Follow-up with PCP in: 1 week Provider: Ten Cardenas DO Follow-up in: 2 weeks Mid-level Provider: Magdalena Tariq MD Follow-up with Mid-level in: 1 week Time spent 40 minutes coordinating discharge copies to: Nathen Rodriguez MD; Ten Cardenas DO; Magdalena Tariq MD, Melaku MD August 28, 2016 12:03
--- NOTE | 2016-08-28 12:59 | PCM.PNORTH ---
Subjective Date of Service: August 28, 2016 Visit Information: Reason for Visit Tenosynovitis Left Hand Surgery/Surgery Date L WRIST I&D 08/24 Post-Op Day # Date of Admission: August 23, 2016 at 20:04 Hospital Day # Subjective No complaints of pain. Anxious to be discharged to her regular place of residence. Not happy with her cat. Postop General: No Complaints, No Shortness of Breath, No Chest Pain, Good Appetite Pain Management: PO Objective Exam Objective alert and pleasant No focal edema or erythema at dorsal hand. No complaints of pain. Moderate ROM at wrist hand and fingers. Sensation intact. OT has seen patient this morning with good report of good mobility. Vital Signs and I/O Vital Sign - Last Date Time Temp Pulse Resp B/P Pulse Ox O2 Delivery O2 Flow Rate FiO2 08/28/16 06:17 36.7 74 16 162/53 98 Nasal Cannula 2.00 Intake and Output 08/27/16 08/27/16 08/28/16 Cumulative From/Thru 15:00 23:00 07:00 08/23/16 19:09 - 08/28/16 03:16 Intake Total 600 ml 5056 ml Output Total 2700 ml Balance 600 ml 2356 ml Intake Oral 600 ml 3100 ml IV Total 1956 ml Output Urine Total 2700 ml # Voids 3 6 # Bowel Movements 5 Lab & Micro Results Laboratory Tests Test 08/28/16 06:05 White Blood Count 5.0th/mm3 (3.8-10.1) Red Blood Count 3.82mil/mm3 (3.90-5.20) Hemoglobin 11.2g/dL (12.0-15.6) Hematocrit 35.3% (35.0-46.0) Mean Corpuscular Volume 92.4fL (81-100) Mean Corpuscular Hemoglobin 29.3pg (27.0-35.0) Mean Corpuscular Hemoglobin Concent 31.7% (32.0-37.0) Red Cell Distribution Width 12.9% (12.3-15.4) Platelet Count 346bil/L (150-400) Neutrophils (%) (Auto) 60.3% (40-74) Lymphocytes (%) (Auto) 22.3% (14-46) Monocytes (%) (Auto) 12.2% (4-12) Eosinophils (%) (Auto) 4.4% (0-5) Basophils (%) (Auto) 0.6% (0-3) Sodium Level 144mEq/L (134-144) Potassium Level 4.5mEq/L (3.5-5.2) Chloride Level 104mEq/L (97-108) Carbon Dioxide Level 30mmol/L (18-29) Blood Urea Nitrogen 11mg/dL (8-27) Creatinine 0.62mg/dL (0.57-1.00) Estimat Glomerular Filtration Rate 130mL/min (>59) Glucose Level 94mg/dL (60-99) Calcium Level 9.3mg/dL (8.5-10.1) Magnesium Level 2.1mg/dL (1.6-2.6) Total Bilirubin 0.3mg/dL (0.0-1.2) Aspartate Amino Transf (AST/SGOT) 35U/L (0-50) Alanine Aminotransferase (ALT/SGPT) 54U/L (0-32) Alkaline Phosphatase 188U/L (25-165) Total Protein 5.8g/dL (6.4-8.4) Albumin 3.3g/dL (3.4-5.0) Thyroid Stimulating Hormone (TSH) 0.226uIU/mL (0.450-4.500) Free Thyroxine 1.81ng/dL (0.82-1.77) Microbiology 08/23/16 Blood Culture - Preliminary, Resulted No growth at 2 days; culture examined... 08/24/16 MRSA (PCR) - Final, Complete 08/23/16 Urine Culture - Final, Complete No growth (<1,000 organisms/mL) 08/24/16 Gram Stain - Final, Resulted 08/24/16 Culture & Sensitivity - Preliminary, Resulted 08/24/16 Anaerobic Culture - Preliminary, Resulted Result Diagram: 08/28/1660408/28/16604 General Appearance: Alert, Cooperative, No Acute Distress Extremities: No Compartment Syndrom Noted Postop Sensory Motor: Distal Motor Intact, Movement in Fingers, Distal Sensation Intact Activity: Activity per PT (occupational therapy has been ordered for gentle range of motion at the wrist hand and fingers to begin today.) Catheters: None Assessment & Plan Plan Postop day #4 from left dorsal hand I&D performed on 08/24/[address] Ten Cardenas. Continue weightbearing as tolerated on the lower extremities per patient's baseline and safety with formal physical therapy.. Patient should remain nonweightbearing in the left upper extremity for ballistic activities but may use her left hand with a front wheeled walker. Patient should persue ROM at the wrist hand and fingers and has been seen by OT this morning and they state she has good ROM. Left dorsal hand wound is inspected today and continues to to look better with no erythema and no drainage and dorsal incision closing. This is re-bandaged with a car hostler dressing to facilitate greater range of motion. Patient has been encouraged to move her wrist hand and fingers during the day which she finds it difficult to remember to do.. Continue occupational therapy for gentle range of motion at the wrist hand and fingers. Outpatient OT order in chart. Keep wound and dressing CDI. Dr. Tejada has consulted on this patient and as always has a detailed plan for antibiotics and cultures etc. in his note dated 08-27-16 and has signed off. Continue Dr. Tejada's ABX recommendations as of note on 08-27-16. Orthopedics thanks hospitalist service for their help in the medical management of this patient. F/U in 10 days at [facility] with Dr. Ten Cardenas for wound check. Orthopedics will sign off on this patient at this time. Anticipated discharge today by hospitalist service on 08-28-16. VTE Prophylaxis: Sub-Q Heparin (Unfractionated) Resuscitation Status: DNR/DNI:Do Not Resuscitate/Intubate Stevie Trivedi PA-C August 28, 2016 12:59
--- NOTE | 2016-08-28 13:30 | NUR ---
Discharge Patient discharge to [facility] for rehab, via a [facility] transport. Report given to Lida KELLEY. All belongings given and taken with her. Notes and instructions given and well understood.
== END 2016-08-28 13:30 | DRG 502 ==
LOC: SED 18:59 → MOC 20:04
PROVIDERS: ADMIT Hospitalist; ATTEND Hospitalist
PROC: 0LB Tendons, Excision (ICD-10-PCS; principal; 2016-08-26)
DX: S63.8X2A Sprain of other part of left wrist and hand, initial encounter (principal); J44.9 Chronic obstructive pulmonary disease, unspecified; E78.5 Hyperlipidemia, unspecified; I10 Essential (primary) hypertension; Z66 Do not resuscitate; E03.9 Hypothyroidism, unspecified; M16.12 Unilateral primary osteoarthritis, left hip; T36.0X5A Adverse effect of penicillins, initial encounter; K59.03 Drug induced constipation; K52.89 Other specified noninfective gastroenteritis and colitis; W55.01XA Bitten by cat, initial encounter; Y92.009 Unspecified place in unspecified non-institutional (private) residence as the place of occurrence of the external cause; Z99.81 Dependence on supplemental oxygen; Z87.891 Personal history of nicotine dependence; Z79.51 Long term (current) use of inhaled steroids